=== PATIENT | male | born 1935 | race Caucasian/White ===

== ENCOUNTER 2016-12-28 13:07 | Inpatient (IN) | payer MEDICARE, OTHER ==
[~2016-12-28] VITALS: Ht 170.2 cm; Wt 51.4 kg
[2016-12-28] MEDS ORDERED: CEFEPIME 2GM/50 ML (PMX) 50 ML IVPB STA (13:21)
[2016-12-28] MEDS ORDERED: SOD CHLORIDE 0.9% 1,000 ML IV STA ×3 (13:23→18:51)
[2016-12-28] MEDS ORDERED: VANCOMYCIN 1 GM (PMX) 250 ML IVPB ONE (13:30)
[2016-12-28] MEDS ORDERED: ACETAMINOPHEN 325 MG TAB PO PRN (13:30)
[2016-12-28] MEDS ORDERED: ONDANSETRON 4 MG INJ IV PRN (13:30)
[2016-12-28] MEDS ORDERED: PANT40TA4 PO (13:41)
[2016-12-28] MEDS ORDERED: PRED20TA PO (13:42)
[2016-12-28] MEDS ORDERED: MESA800T2 PO (13:43)
[2016-12-28] MEDS ORDERED: UDMYL PO (13:44)
[2016-12-28] MEDS ORDERED: OLAN5TAB5 PO (13:45)
[2016-12-28] MEDS ORDERED: SERT-165 PO (13:45)
[2016-12-28] MEDS ORDERED: LORA1TAB PO (13:46)
[2016-12-28] MEDS ORDERED: ZOLP10TA5 PO (13:47)
[2016-12-28] MEDS ORDERED: METR500T14 PO (13:49)
[2016-12-28] MEDS ORDERED: MULT-105 PO (13:51)
--- NOTE | 2016-12-28 13:52 | RADRPT ---
PROCEDURE: XR Chest. CLINICAL INDICATION: Hypotension. TECHNIQUE: Two views. Frontal and lateral. COMPARISON: No prior study is available for comparison. FINDINGS: The lungs are clear. The heart size is normal. There is calcification in the aorta consistent with atherosclerosis. There is no pleural effusion. There is no pneumothorax. IMPRESSION: 1. Atherosclerosis. 2. Otherwise normal chest x-ray. RPTAT: QQ .Mohsen Ledesma MD, MD Date Time Electronically viewed and signed by .Mohsen Ledesma MD, on 12/28/2016 13:52 .R/
[2016-12-28] MEDS ORDERED: LACT-9 PO (13:53)
[2016-12-28] MEDS ORDERED: LIDOCAINE 1% (MDV) 20 ML INJ SC ONE (14:00)
[2016-12-28] MEDS ORDERED: LACT-121 PO (14:27)
[2016-12-28] MEDS ORDERED: CALC-84 PO (14:27)
[2016-12-28 14:36] LABS: ADD SCAN DIFF NO
[2016-12-28 14:38] LABS: ABNORMAL IP MESSAGE 1; HEMATOCRIT 36.8 % (42.0-52.0); HEMOGLOBIN 11.7 g/dl (14.0-18.0); MEAN CORPUSCULAR HEMOGLOBIN 31.9 pg (29.0-33.0); MEAN CORPUSCULAR HGB CONC 31.8 g/dl (32.0-37.0); MEAN CORPUSCULAR VOLUME 100.3 fl (82.0-101.0); MEAN PLATELET VOLUME 11.8 fl (7.4-10.4); PLATELET COUNT 82 10^3/UL (140-415); RED BLOOD COUNT 3.67 10^6/ul (4.70-6.10); RED CELL DISTRIBUTION WIDTH 12.9 % (11.5-14.5); WHITE BLOOD COUNT 14.2 10^3/ul (4.8-10.8)
[2016-12-28 14:48] LABS: INR 1.12; PROTIME 14.4 Sec (12.2-14.2); PT RATIO 1.1
[2016-12-28 14:49] LABS: PARTIAL THROMBOPLASTIN TIME 31.7 Sec (25.0-35.0)
[2016-12-28 14:53] LABS: ADD UMIC YES; URINE BILIRUBIN (Dip) 2+ (NEGATIVE); URINE BLOOD (Dip) NEGATIVE (NEGATIVE); URINE COLOR AMBER (YELLOW); URINE KETONES (Dip) NEGATIVE (NEGATIVE); URINE LEUKOCYTE ESTERASE (Dip) NEGATIVE (NEGATIVE); URINE NITRITE (Dip) POSITIVE (NEGATIVE); URINE TOTAL PROTEIN (Dip) 1+ (NEGATIVE); URINE UROBILINOGEN (Dip) 1.0 E.U./dL (0.1-1.0)
[2016-12-28 15:05] LABS: ANISOCYTOSIS 1+; HYPOCHROMASIA 1+; LYMPHOCYTES # 0.4 10^3/ul (0.8-2.9); MONOCYTE # 0.6 10^3/ul (0.3-0.9); NEUTROPHIL # 13.2 10^3/ul (1.6-7.5); PLATELET ESTIMATE PLT APPEAR DECREASED; POIKILOCYTOSIS 1+
[2016-12-28 15:17] LABS: BACTERIA,URINE MODERATE; URINE RBCS 0-2 /HPF (0)
[2016-12-28 15:18] LABS: ICTOTEST NEGATIVE (NEGATIVE)
[2016-12-28 15:37] LABS: ALBUMIN 1.9 g/dl (3.3-4.9); ALBUMIN/GLOBULIN RATIO 0.79; BILIRUBIN,INDIRECT 0.5 mg/dl (0-1.1); BILIRUBIN,TOTAL 0.5 mg/dl (0.2-1.3); CALCIUM 8.2 mg/dl (8.4-10.2); CREATININE 1.65 mg/dl (0.61-1.24); TOTAL PROTEIN 4.3 g/dl (6.1-8.1)
[2016-12-28 15:42] LABS: POTASSIUM 5.4 mmol/L (3.5-5.1)
[2016-12-28 15:48] LABS: TROPONIN-I 0.042 ng/ml (0.00-0.12)
--- NOTE | 2016-12-28 15:51 | RADRPT ---
PROCEDURE: XR Chest. CLINICAL INDICATION: Check PICC line position. TECHNIQUE: Single frontal view. COMPARISON: 12/28/2016. 1342 hours. FINDINGS: There is a left arm PICC line with the tip in the lower superior vena cava. The lungs are clear. The heart size is normal. There is calcification in the aorta consistent with atherosclerosis. There is no pleural effusion. There is no pneumothorax. IMPRESSION: 1. Satisfactory position of left arm PICC line. 2. Atherosclerosis. 3. Otherwise normal chest x-ray. RPTAT: QQ .Mohsen Ledesma MD, MD Date Time Electronically viewed and signed by .Mohsen Ledesma MD, on 12/28/2016 15:50 .R/
--- NOTE | 2016-12-28 16:12 | ERA ---
ER Documentation Chief Complaint Date/Time DATE: 12/28/16 TIME: 16:08 Chief Complaint BROUGHT IN VIA PRIVATE AMBULANCE DUE TO HYPOTENSION HPI Patient is an 81-year-old male who presents with low blood pressure. Please note the history and physical exam is limited secondary to the patient's mental status. The patient was brought in by ambulance. He feels weak. He has not been eating for the past few months per the son. He was on his way admission to get a G-tube placed but his blood pressure was low so the patient was diverted to our emergency department. The patient's primary doctor is Dr. Dick Aguilar. ROS All systems reviewed and are negative except as per history of present illness. Medications Home Meds Reported Medications Lactose-Reduced Food (Boost) 237 Ml Liquid, 237 ML PO DAILY 12/28/16 Calcium Carbonate-Vitamin D3 (Calcium 500 + D Tablet) 1 Each Tablet, 1 TAB PO DAILY, TAB 12/28/16 Lactose-Free Food (ENSURE LIQUID) 237 Ml Liquid, 237 ML PO TID TAKE 1 CAN TID 12/28/16 Multivitamin with Minerals (Multivitamins with Minerals) 1 Each Tablet, 1 EACH PO DAILY, TAB 12/28/16 Metronidazole* (Metronidazole*) 500 Mg Tablet, 500 MG PO TID, TAB 12/28/16 Zolpidem Tartrate* (Zolpidem Tartrate*) 10 Mg Tablet, 10 MG PO QHS Y for INSOMNIA, #30 TAB 12/28/16 Lorazepam* (Lorazepam*) 1 Mg Tablet, 1 MG PO Q12H Y for ANXIETY, #60 TAB 12/28/16 Olanzapine* (Zyprexa*) 5 Mg Tablet, 5 MG PO QHS, #30 TAB 12/28/16 Sertraline Hcl* (Sertraline Hcl*) 100 Mg Tablet, 100 MG PO DAILY, #30 TAB 12/28/16 Magaldrate/Simethicone* (Mag-Al Plus Suspension*) 30 Ml Oral.susp, 30 ML PO Q4H Y for GASTROINTESTINAL UPSET, ML 12/28/16 Mesalamine* (Asacol HD) 800 Mg Tablet.dr, 800 MG PO Q8H, TAB 12/28/16 Prednisone* (Prednisone*) 20 Mg Tab, 20 MG PO BID, TAB 12/28/16 Pantoprazole* (Pantoprazole*) 40 Mg Tablet.dr, 40 MG PO AC BREAKFAST DINNER, TAB 12/28/16 Allergies Allergies: Coded Allergies: No Known Allergy (Unverified , 12/28/16) PMhx/Soc History of Surgery: No (unk) Anesthesia Reaction: No Hx Neurological Disorder: No Hx Respiratory Disorders: No Hx Cardiac Disorders: Yes (Hypertension/hyperlipidemia) Hx Psychiatric Problems: Yes Hx Miscellaneous Medical Probl: Yes (GI bleed, GI fissure) Hx Alcohol Use: No Hx Substance Use: No Hx Tobacco Use: No (quit 40 years ago) Smoking Status: Former smoker FmHx Unable to obtain Physical Exam Vitals Vital Signs Date Time Temp Pulse Resp B/P Pulse Ox O2 Delivery O2 Flow Rate FiO2 12/28/16 15:00 88 17 71/53 100 Nasal Cannula 4.0 12/28/16 14:30 83 12 85/56 99 Nasal Cannula 4.0 12/28/16 14:00 92 18 83/56 99 Nasal Cannula 4.0 12/28/16 13:45 80 12 80/62 100 Nasal Cannula 4.0 12/28/16 13:33 97.9 94 18 72/47 96 12/28/16 13:30 Nasal Cannula 4 12/28/16 13:30 85 12 77/50 100 Nasal Cannula 4.0 Physical Exam Const: Cachectic Head: Atraumatic Eyes: Normal Conjunctiva ENT: Normal External Ears, Nose and Mouth. Extremely dry mucous membranes Neck: Full range of motion..~ No meningismus. Resp: Clear to auscultation bilaterally Cardio: Regular rate and rhythm, no murmurs Abd: Soft, non tender, non distended. Normal bowel sounds Skin: No petechiae or rashes Back: No midline or flank tenderness Ext: No cyanosis, or edema Neur: Awake but confused Result Diagram: 12/28/16 1330 12/28/16 1350 Results 24 hrs Laboratory Tests Test 12/28/16 13:30 12/28/16 13:50 12/28/16 14:39 White Blood Count 14.210^3/ul Red Blood Count 3.6710^6/ul Hemoglobin 11.7g/dl Hematocrit 36.8% Mean Corpuscular Volume 100.3fl Mean Corpuscular Hemoglobin 31.9pg Mean Corpuscular Hemoglobin Concent 31.8g/dl Red Cell Distribution Width 12.9% Platelet Count 8210^3/UL Mean Platelet Volume 11.8fl Neutrophils % 93.0% Lymphocytes % 3.0% Monocytes % 4.0% Eosinophils % % Neutrophils # 13.210^3/ul Lymphocytes # 0.410^3/ul Monocytes # 0.610^3/ul Eosinophils # 10^3/ul Platelet Estimate PLT APPEAR DECREASED Hypochromasia 1+ Poikilocytosis 1+ Anisocytosis 1+ Prothrombin Time 14.4Sec Prothrombin Time Ratio 1.1 INR International Normalized Ratio 1.12 Activated Partial Thromboplast Time 31.7Sec Lactic Acid Level 5.4mmol/L Sodium Level 126mmol/L Potassium Level 5.4mmol/L Chloride Level 104mmol/L Carbon Dioxide Level 16mmol/L Anion Gap 11 Blood Urea Nitrogen 49mg/dl Creatinine 1.65mg/dl Glucose Level 151mg/dl Calcium Level 8.2mg/dl Total Bilirubin 0.5mg/dl Direct Bilirubin 0.00mg/dl Indirect Bilirubin 0.5mg/dl Aspartate Amino Transf (AST/SGOT) 17IU/L Alanine Aminotransferase (ALT/SGPT) 28IU/L Alkaline Phosphatase 73IU/L Troponin I 0.042ng/ml Total Protein 4.3g/dl Albumin 1.9g/dl Globulin 2.40g/dl Albumin/Globulin Ratio 0.79 Urine Color PAT Urine Clarity CLEAR Urine pH 5.0 Urine Specific [place] 1.025 Urine Ketones NEGATIVE Urine Nitrite POSITIVE Urine Bilirubin 2+ Urine Ictotest NEGATIVE Urine Urobilinogen 1.0 E.U./dL Urine Leukocyte Esterase NEGATIVE Urine Microscopic RBC 0-2/HPF Urine Microscopic WBC 0-2/HPF Urine Epithelial Cells FEW Urine Amorphous Urates FEW Urine Bacteria MODERATE Urine Hyaline Casts FEW Urine Hemoglobin NEGATIVE Urine Glucose 0.1%% Urine Total Protein 1+ Current Medications Medications (Trade) Dose Ordered Sig/Carl Route PRN Reason Start Time Stop Time Status Last Admin Dose Admin Cefepime HCl 50 ml @ 100 mls/hr ONCE STAT IVPB 12/28/16 13:21 12/28/16 13:50 DC 12/28/16 15:47 Vancomycin HCl 250 ml @ 125 mls/hr ONCE ONCE IVPB 12/28/16 13:30 12/28/16 15:29 DC Sodium Chloride 1,000 ml @ 1,000 mls/hr Q1H STAT IV 12/28/16 13:23 12/28/16 14:22 DC 12/28/16 14:03 Sodium Chloride (NS) 1,000 ml @ 1,000 mls/hr Q1H STAT IV 12/28/16 13:23 12/28/16 14:22 DC 12/28/16 14:03 Ondansetron HCl (Zofran Inj) 4 mg BRIDGE ORDER PRN IV NAUSEA AND/OR VOMITING 12/28/16 13:30 12/29/16 13:29 Acetaminophen (Tylenol Tab) 650 mg ER BRIDGE PRN PO MILD PAIN/FEVER 12/28/16 13:30 12/29/16 13:29 Lidocaine (Xylocaine 1% (Mdv) 20 ml) 20 ml ONCE ONCE SC 12/28/16 14:00 12/28/16 14:01 DC Procedures/MDM EKG read by me: Rate/Rhythm: Regular rate and rhythm at a rate of 94 Intervals: Normal Impression: No evidence of ischemia or arrhythmia Chest x-ray shows no pneumonia or pneumothorax per radiology. Admit MDM: Patient's infectious symptoms have not stabilized and the patient is at risk of rapid decompensation. The patient will be admitted for careful hydration, antibiotic therapy, and infectious source control. Severe Sepsis criteria: Infectious source: Unclear at this time End organ damage indicated by: Lactate greater than 2 Sepsis Management: Time of recognition of sepsis: 13:30 Within 3 hours of recognition: Blood cultures x 2 before broad-spectrum antibiotics: Yes 30 ml/kg NS bolus Completed Initial lactate 5.4 Repeat lactate pending Time of recognition of septic shock: No septic shock Septic Shock Assessment: Any lactic acid > 4.0 yes Persistent hypotension (SBP < 90 or 40 mmHg drop, MAP < 65) despite 30 mL/kg IV fluid bolus No Volume Re-assessment for Septic Shock (post 30 ml/kg bolus): Temp 97.9, BP 71/53, HR 88, RR 17, Pox 100% on 4 L nasal cannula Heart Regular rate & rhythm Lungs No crackles Skin Warm & dry Cap Refill Less than 2 seconds Peripheral pulses Radially present Persistent Hypotension Treatment: Comfort care No Central line PICC line placed Vasopressor started Not required I considered further perfusion assessment with CVP measurement, SCVO2, bedside ultrasound volume assessment, passive leg raise, trial of further fluid bolus. And proceeded with 30 ml/kg fluid bolus of NSS, broad spectrum antibiotics, and admission. Accepting Care Team Current data and ongoing care discussed. Admitting Physician: Dr. Jonathan Kirkpatrick the patient's primary doctor Check Clerk(s): None Outstanding Data: Culture results and repeat lactic acid Critical Care: Critical care time 35 minutes excluding all billable procedures Emergent fluid management while maintaining close respiratory support. Provision of immediate and broad-spectrum antibiotic therapy. Simultaneous assessment for possible sources in order to direct targeted therapy. Consideration for invasive and chemical support to prevent cardiopulmonary collapse. Departure Diagnosis: Primary Impression: Failure to thrive Qualified Code: R62.7 - Failure to thrive in adult Additional Impressions: Hypotension Qualified Code: I95.9 - Hypotension, unspecified hypotension type Dehydration Anemia Qualified Code: D64.9 - Anemia, unspecified type Septic shock Hyponatremia Condition: Serious SAMANTHA ADEN MD Dec 28, 2016 16:12
[2016-12-28] MEDS ORDERED: TPN 1,000 ML IV STA (16:31)
--- NOTE | 2016-12-28 16:45 | RADRPT ---
PROCEDURE: US guidance for PICC line CLINICAL INDICATION: PICC line placement TECHNIQUE: Multiple real-time images were acquired of the patient's arm utilizing a high resolutio n transducer. This was performed by the PICC line nurse for venous access. COMPARISON: None FINDINGS: Ultrasound guidance for PICC line placement. IMPRESSION: Ultrasound guidance for PICC line placement. RPTAT: AA .Chu Raines MD, MD Date Time Electronically viewed and signed by .Chu Raines MD, on 12/28/2016 16:44 .S/
[2016-12-28] MEDS ORDERED: METHYLPRED. NA SUCC 1,000 MG in DEXTROSE 5% 50 ML IVPB ONE (17:00)
[2016-12-28] MEDS: [UNRECOGNIZED DRUG - REMARK] XX SCH (17:30)
--- NOTE | 2016-12-28 17:46 | CONS ---
DATE OF ADMISSION: 12/28/2016 DATE OF CONSULTATION: 12/28/2016 TYPE OF CONSULTATION: Gastroenterology. Dear Dr. Castillo, Thank you for asking me to see Mr. Ohara in GI consultation. HISTORY OF PRESENT ILLNESS: The patient, as you know, is an 81-year-old [place] gentleman who [facility] a [facility] of [facility], weakness, tiredness and dehydrati on. The patient is unable to give me any history. He is alert. Upon talking with the patient's so n, he says he has been vomiting, has not been able to keep any food down in the past several days an d every time he was given food, he would eat and throw up and any medications given to him, he would take it and throw it up. No history of vomiting blood. He does have abdominal pain, history of lyle ving bloody diarrhea. He has a history of longstanding chronic ulcerative colitis. He was on predn isone and he was on Asacol, the details of which are not available at this stage; however, what we k now at this time, the patient was supposed to be getting following medications in the jail which include: 1. Lorazepam. 2. Zyprexa. 3. Zolpidem. 4. Calcium. 5. Ensure. 6. Boost. 7. Magaldrate, which is simethicone. 8. Mesalamine. 9. Pantoprazole. 10. Prednisone. PAST MEDICAL HISTORY: Essentially several weeks ago he had a colonoscopy is done in [facility] which showed evidence of severe ulcerative colitis. Biopsy did not show any evidence of dysplasia. Please refer to the H and P for more information. PHYSICAL EXAMINATION: GENERAL: The patient is an 81-year-old [place] gentleman who at this time is alert. His skin and oral mucosa are extremely dry. VITAL SIGNS: Temperature 97.9, pulse is 88, blood pressure is running in the low 80s systolic, late st is 110/70. CARDIOVASCULAR: Normal heart sounds. RESPIRATORY: Normal breath sounds. ABDOMEN: Showed unremarkable findings. RECTAL: Exam is deferred. LABORATORY WORKUP: Hemoglobin 11.7, WBC is 14,200, platelet count 82,000. INR is 1.12, potassium 5 .4, sodium 126, BUN is 49, creatinine 1.65, bilirubin 0.5, AST 17, ALT 28, albumin 1.9. The chest x -ray shows evidence of arteriosclerosis. CLINICAL IMPRESSION: The patient presenting with history of abdominal pain and vomiting. Rule out bowel obstruction, rule out pancreatitis, rule out peptic ulcer disease. He does have history of ul cerative colitis. Clinically, he does not have any toxic megacolon. He has mentioned he has very severe ulcerative colitis. He is a hypotensive due to dehydration. He has prerenal azotemia. PLAN: At this time, recommend IV Solu-Medrol 1 gram to be given ____ the emergency room doctor. TP N needs to be given to improve his albumin. He needs to continue Solu-Medrol every 8 hours at 40 mg . The patient is currently being given antibiotics, which can be continued. Recommend CAT scan of the abdomen. ____ Asacol HD 1 tablet ____b.i.d. Once again, doctor, thank you for this consultation. Dictated By: ADA CASTELLON/NTS Conf#: [id number] DID#: [id number] CC: JULIET CASTILLO MD; ADA SANTIAGO MD;*EndCC*
[2016-12-28] MEDS: TPN 1,000 ML IV SCH ×2 (18:00→21:07)
[2016-12-28] MEDS ORDERED: NORepinephrine 8MG/250 ML (PMX 250 ML IV STA (18:27)
[2016-12-28] MEDS ORDERED: SOD CHLORIDE 0.9% 100 ML ONE (19:03)
[2016-12-28 19:12] LABS: AMYLASE 64 U/L (11-123)
[2016-12-28] MEDS: ACCU-CHEK XX SCH ×2 (19:50→23:57)
[2016-12-28] MEDS: FAT EMULSION 20% 250 ML IV SCH (21:07)
[2016-12-28] MEDS: MESALAMINE 4 GM/60 ML ENEMA PR SCH (21:07)
[2016-12-28] MEDS: ASACOL HD PO SCH (21:29)
[2016-12-29] VITALS (65 sets, daily range): BP systolic 86–131; BP diastolic 45–89; PULSE 67–89; RESP 11–29; TEMP 97.2
[2016-12-29] MEDS: [UNRECOGNIZED DRUG - REMARK] XX SCH ×3 (00:31→18:00)
[2016-12-29] MEDS: ASACOL HD PO SCH ×3 (06:00→22:00)
[2016-12-29] MEDS: TPN 1,000 ML IV SCH ×2 (08:16→18:54)
[2016-12-29] MEDS ORDERED: NORepinephrine 8MG/250 ML (PMX 250 ML IV SCH (08:30)
[2016-12-29] MEDS: ACCU-CHEK XX SCH ×3 (08:53→21:00)
--- NOTE | 2016-12-29 10:40 | CONS ---
Date/Time of Note Date/Time of Note DATE: 12/29/16 TIME: 10:36 Assessment/Plan Assessment/Plan Chief Complaint/Hosp Course - ACUTE KIDNEY INJURY - CHRONIC KIDNEY DISEASE - SEPTIC SHOCK - RESPIRATORY FAILURE - HYPERKALEMIA - ANEMIA PLAN: HEMODYNAMIC SUPPORT AT THIS POINT RECHECK HIS POTASSIUM LATER TODAY MONITOR H/H IV PRESSORS IV FLUID AVOIDING NEPHROTOXIC AGENTS THANK YOU Johan NASH Problems: Consultation Date/Type/Reason Admit Date/Time Dec 28, 2016 at 13:26 Date of Consultation: Dec 29, 2016 Type of Consultation: NEPHROLOGY Reason for Consultation - ACUTE KIDNEY INJURY - CHRONIC KIDNEY DISEASE Hx of Present Illness Patient is an 81-year-old male who presents with low blood pressure. Please note the history and physical exam is limited secondary to the patient's mental status. The patient was brought in by ambulance. He feels weak. He has not been eating for the past few months per the son. He was on his way admission to get a G-tube placed but his blood pressure was low so the patient was diverted to our emergency department. Subjective hx not possible: pt non-verbal Past Medical History Medical History: coronary artery disease, hypertension, renal disease Family History Significant Family History: no pertinent family hx Social History Alcohol Use: none Smoking Status: Former smoker Drug Use: none Exam/Review of Systems Vital Signs Vitals Vital Signs Date Time Temp Pulse Resp B/P Pulse Ox O2 Delivery O2 Flow Rate FiO2 12/29/16 08:15 79 22 118/89 100 Nasal Cannula 12/29/16 07:30 98.2 2.0 12/28/16 22:00 30 Intake and Output 12/28/16 12/28/16 12/29/16 15:00 23:00 07:00 Intake Total 2000 ml Output Total 120 ml 200 ml Balance 1880 ml -200 ml Exam Constitutional: other (In ICU, Intubated) Neck: jvd Respiratory: crackles/rales Cardiovascular: regular rate and rhythm, systolic murmur Gastrointestinal: soft Results Result Diagram: 12/28/16 1330 12/28/16 1350 Results 24 hrs Laboratory Tests Test 12/28/16 13:30 12/28/16 13:50 12/28/16 14:39 12/28/16 16:25 White Blood Count 14.2 H Red Blood Count 3.67 L Hemoglobin 11.7 L Hematocrit 36.8 L Mean Corpuscular Volume 100.3 Mean Corpuscular Hemoglobin 31.9 Mean Corpuscular Hemoglobin Concent 31.8 L Red Cell Distribution Width 12.9 Platelet Count 82 L Mean Platelet Volume 11.8 H Neutrophils % 93.0 H Lymphocytes % 3.0 L Monocytes % 4.0 Eosinophils % Neutrophils # 13.2 H Lymphocytes # 0.4 L Monocytes # 0.6 Eosinophils # Platelet Estimate PLT APPEAR DECREASED Hypochromasia 1+ Poikilocytosis 1+ Anisocytosis 1+ Prothrombin Time 14.4 H Prothrombin Time Ratio 1.1 INR International Normalized Ratio 1.12 Activated Partial Thromboplast Time 31.7 Lactic Acid Level 5.4 *H 2.1 Sodium Level 126 L Potassium Level 5.4 H Chloride Level 104 Carbon Dioxide Level 16 L Anion Gap 11 Blood Urea Nitrogen 49 H Creatinine 1.65 H Glucose Level 151 Calcium Level 8.2 L Total Bilirubin 0.5 Direct Bilirubin 0.00 Indirect Bilirubin 0.5 Aspartate Amino Transf (AST/SGOT) 17 Alanine Aminotransferase (ALT/SGPT) 28 Alkaline Phosphatase 73 Troponin I 0.042 Total Protein 4.3 L Albumin 1.9 L Globulin 2.40 Albumin/Globulin Ratio 0.79 Urine Color PAT Urine Clarity CLEAR Urine pH 5.0 Urine Specific [place] 1.025 Urine Ketones NEGATIVE Urine Nitrite POSITIVE H Urine Bilirubin 2+ H Urine Ictotest NEGATIVE Urine Urobilinogen 1.0 E.U./dL Urine Leukocyte Esterase NEGATIVE Urine Microscopic RBC 0-2 Urine Microscopic WBC 0-2 Urine Epithelial Cells FEW Urine Amorphous Urates FEW Urine Bacteria MODERATE Urine Hyaline Casts FEW Urine Hemoglobin NEGATIVE Urine Glucose 0.1% H Urine Total Protein 1+ H Test 12/28/16 16:37 12/28/16 18:44 12/28/16 19:48 12/28/16 23:57 Stool Occult Blood POSITIVE Lactic Acid Level 1.4 Amylase Level 64 Lipase 28 Bedside Glucose 121 227 H Test 12/29/16 08:49 Bedside Glucose 166 Medications Medications Current Medications Mesalamine (Rowasa) 4 gm HS CA Last administered on 12/28/16t 21:07; Admin Dose 4 GM; Start 12/28/16 at 21:00 Patient Own Medication 1 ea Q8 PO ; Start 12/28/16 at 22:00 Miscellaneous Information MEDICATION REQUIRES CLARIFICATION: Q8H XX ; Start 12/28/16 at 17:30 Total Parenteral Nutrition 1,000 ml @ 100 mls/hr Q10H IV Last administered on 12/29/16 08:16; Admin Dose 100 MLS/HR; Start 12/28/16 at 18:00 Fat Emulsion Intravenous (Liposyn Ii 20%) 250 ml @ 10 mls/hr Q24H IV Last administered on 12/28/16 21:07; Admin Dose 10 MLS/HR; Start 12/28/16 at 20:00 Phytonadione (Vitamin K) 10 mg Q7D IM ; Start 01/04/17 at 18:30 Diagnostic Test (Pha) (Accu-Chek) 1 ea Q6H XX Last administered on 12/29/16 08: 53; Admin Dose 1 EA; Start 12/28/16 at 18:30; Stop 12/29/16 at 12:31 Diagnostic Test (Pha) (Accu-Chek) 1 ea Q12 XX ; Start 12/29/16 at 09:00 IV Flush 10 ml 10 ml PRN PRN IV IV PROTOCOL; Start 12/28/16 at 19:00 Norepinephrine 250 ml @ 1.875 mls/ hr TITRATE IV Last administered on 08:52; Admin Dose 9.375 MLS/HR; Start 12/29/16 at 08:30; Stop 12/29/16 at 15: 00 Norepinephrine 16 mg/Dextrose 500 ml @ 1.87 mls/hr TITRATE IV ; Start 12/29/16 at 10:00 Infliximab/Sodium Chloride (Remicade/NS) 272 ml @ 136 mls/hr ONCE ONCE IV ; Start 12/29/16 at 15:00; Stop 12/29/16 at 16:59 GONZALEZ NATION MD Dec 29, 2016 10:40
[2016-12-29 12:00] LABS: ADD SCAN DIFF NO
[2016-12-29 12:08] LABS: ABNORMAL IP MESSAGE 1; HEMATOCRIT 27.9 % (42.0-52.0); MEAN CORPUSCULAR HEMOGLOBIN 32.6 pg (29.0-33.0); MEAN CORPUSCULAR HGB CONC 32.3 g/dl (32.0-37.0); MEAN CORPUSCULAR VOLUME 101.1 fl (82.0-101.0); MEAN PLATELET VOLUME 11.6 fl (7.4-10.4); PLATELET COUNT 71 10^3/UL (140-415); RED BLOOD COUNT 2.76 10^6/ul (4.70-6.10)
[2016-12-29 12:14] LABS: POTASSIUM 4.5 mmol/L (3.5-5.1)
[2016-12-29 12:16] LABS: CREATININE 0.98 mg/dl (0.61-1.24)
[2016-12-29 12:17] LABS: CALCIUM 7.4 mg/dl (8.4-10.2)
[2016-12-29 13:56] LABS: LYMPHOCYTES # 0.4 10^3/ul (0.8-2.9); NEUTROPHIL # 8.8 10^3/ul (1.6-7.5)
[2016-12-29 13:57] LABS: ANISOCYTOSIS 1+; HYPOCHROMASIA 1+
--- NOTE | 2016-12-29 14:19 | HP ---
DATE OF ADMISSION: 12/28/2016 ADMITTING DIAGNOSES: 1. Severe hypotension. 2. Chronic ulcerative colitis with acute status, diarrhea, rectal bleeding. 3. Septic shock. 4. Major depression. 5. Anemia. 6. Dysphagia. 7. Malnutrition, weight loss. 8. Severe inflammatory bowel disease. 9. Benign prostatic hypertrophy. 10. Recurrent hypotension. HISTORY OF PRESENT ILLNESS: The patient is an 81-year-old male admitted to the hospital from [facility] after he was sent for his weakness, lethargy, not eating or drinking, dehydrated and worsen ing for the last 3 days. Patient evaluated in the emergency room, IV fluids started and bolus was g iven to him. admitted to ICU for his hypotension on vasopressor and further management. His lactic acid was elevated compatible with sepsis and lactic acid elevation. The patient is weak, lethargic and noncompliant. HABITS: Not a smoker, drinker or drug abuser. ALLERGIES: DENIES ALLERGIES. PAST MEDICAL HISTORY: The patient has history of Crohn's disease, ulcerative colitis, rectal bleedi ng, indigestion, sepsis, incontinent of urine, peptic ulcer disease, gastroesophageal reflux disorde r, severe anemia with blood transfusion, weight loss, anorexia, sleep disorder, difficulty walking, dyslipidemia, recurrent GI bleeding, benign prostatic hypertrophy, acute agitation and psychosis. MEDICATIONS: Currently, he is on: 1. Remeron. 2. Olanzapine. 3. Vitamin D. 4. Protonix. 5. Mesalamine. 6. Prednisone. 7. He is on Flagyl ____ not responding to medicine 8. Ferrous sulfate. 9. Nutritional supplement. 10. Flomax. SOCIAL HISTORY: Patient used to be a smoker. No drinker, drug abuser, quit more than 40 years. FAMILY HISTORY: Unremarkable. REVIEW OF SYSTEMS: GASTROINTESTINAL: Peptic ulcer disease, anorexia, epigastric pain, weight loss, Crohn's disease, ul cerative colitis, GI bleeding followed by Dr. Watts on ____and prednisone, recurrent abdominal pain , anemia, dehydration and blood transfusion. Follow up GI workup ____. CARDIOVASCULAR: No hypertension, but hypotension. No heart disease or chest pain, no peripheral va scular disease. GENITOURINARY: No dysuria, hematuria or incontinence of urine, but occasional urgency and incontine ncy occasionally. CARDIOVASCULAR: No hypertension, no chest pain. No peripheral vascular disease. RESPIRATORY: No shortness of breath or cough. No pulmonary tuberculosis, hemoptysis. HEMATOLOGY: Chronic anemia secondary to gastrointestinal bleeding, chronic illnesses, anorexia and poor appetite. MUSCULOSKELETAL: Severe myopathy and difficulty walking. Bedridden for several months. HEMATOLOGY: Chronic anemia of multiorgan disease. NEUROLOGIC: Peripheral neuropathy with weakness. No pain, but confusion and agitation. PHYSICAL EXAMINATION: GENERAL: The patient is awake, calm, confused, looks stated age. VITAL SIGNS: On admission, blood pressure was 80/60 and is on IV fluids on dopamine infusion. Zarina re weakness and pale. HEENT: Normocephalic, atraumatic. Pupils equal, react to light and accommodation. Sclerae anicter ic. Extraocular movements within normal limits. Throat clear. No sign of acute infection seen. D ry oral mucosa. Facial skin and scalp within normal limits. NECK: Supple, trachea central, no thyroid enlargement, no cervical lymphadenopathy. Carotid pulse normal. No jugular venous distention. CHEST: Normal contour with normal inspiration and expiration. LUNGS: Clear to auscultation and percussion. HEART: Regular sinus rhythm. No rub or murmur. PMI localized in midclavicular line, fourth interc ostal space. ABDOMEN: Umbilicus central. No organomegaly. No tenderness or rebound, no organomegaly. Tenderne ss, generalized, not localized. A scaphoid abdomen. EXTERNAL GENITALIA: Within normal limits. RECTAL: The patient refused due to rectal bleeding. EXTREMITIES: Upper and lower extremities normally shaped at this moment, no muscle atrophy with sev ere weakness. Stiffness of the joints and difficulty walking or sitting. NEUROLOGICAL: Cranial nerves II through XII and peripheral nerves, sensory and motor grossly within normal limits. Gait unable. The patient had numbness in the extremities and dense weakness. IMPRESSION: 1. Acute orthostatic hypotension. 2. Severe lactic acid elevation. 3. Sepsis. 4. Gastrointestinal hemorrhage. 5. Anemia due to acute blood loss. 6. Malnutrition. 7. Acute renal failure. PLAN: The patient admitted to the hospital with Dr. Watts for PEG placement. Family agreed for it . Will ask ____ for nephrology consult for his acute renal failure. Will ask Dr. Corbett in inf ectious disease consult. Discussed his condition with the family and they understand the plan. We will follow up. PROGNOSIS: Guarded. CODE STATUS: FULL CODE. Dictated By: RAMBO POWELL/MEAGAN Conf#: [id number] DID#: [id number]
[2016-12-29] MEDS ORDERED: SOD CHLORIDE 0.9% IV ONE (15:00)
[2016-12-29] MEDS ORDERED: INFLIXIMAB IV ONE (15:00)
--- NOTE | 2016-12-29 15:02 | RADRPT ---
PROCEDURE: CT scan of the abdomen and pelvis without IV contrast. CLINICAL INDICATION: 81-year-old male with history of all ulcerative colitis and vomiting. TECHNIQUE: Thin section axial, coronal and sagittal images were performed through the abdomen and pelvis without contrast. Radiation Dose: CTDI: 6.7 and DLP: 380 One or more of the following dose reduction techniques were used: - Automated exposure control. - Adjustment of the mA and/or kV according to patient size. Use of iterative reconstruction technique. COMPARISON: Chest x-ray 10/27/2016 06:18 a.m. FINDINGS: Soft tissues: There is anasarca of the soft tissues.. Lungs and pleural spaces: There are bilateral pleural effusions. There is compressive atelectasis i n the right and left lower lobes associated with the pleural effusions. Remaining lung montesinos are m ildly hyperinflated with no pulmonary nodule or acute infiltrate identified. Heart: Heart is normal in size. There are vascular calcifications of the root of the aorta and in t he left coronary artery. There is a small pericardial effusion. The liver, common bile duct and gallbladder: The liver is mildly enlarged measuring 15.9 cm AP. No hepatic mass or intrahepatic biliary ductal dilatation is identified. The gallbladder and gallbladd er wall are normal. Gastrointestinal: There is mucosal thickening of the cecum, ascending colon and portions of the machado sverse colon. There is mucosal thickening of the descending and sigmoid colon. There are diverticu la in the sigmoid colon. There is mucosal thickening of the rectal ampulla. There is a small left i nguinal hernia containing only fat, no intra-abdominal. Pancreas: The pancreas is normal in size. No pancreatic mass is identified. The extrahepatic commo n bile duct is normal. Kidneys, bladder and adrenal glands : The adrenal glands and both kidneys are normal. No obstructin g ureterolith or nephrolith is identified. Air and fluid are noted in the urinary bladder which con tains a Chanel catheter. There is mild trabeculation of the urinary bladder wall which could be the result of chronic obstruction or infection. Spleen: Normal. Lymph nodes: Normal. Reproductive system and pelvis : The prostate gland is enlarged measuring 4.9 x 4.3 by 5.1 cm. Bony elements: There are degenerative osteophytes in the thoracic and lumbosacral spine. There are mild degenerative changes in both hips with a small benign bone island in the proximal head of the r ight femur. No acute bony fracture is noted. Vasculature: Atherosclerotic vascular calcifications are present in the abdominal aorta, lower thora cic aorta, common iliac arteries near the origin of the renal arteries. Atherosclerotic calcificati ons are present in the distal right common femoral artery. IMPRESSION: 1. Diffuse mucosal thickening involving the colon including the rectum consistent with the stated h istory of Crohn disease. Diverticulosis of the sigmoid colon. 2. Anasarca. 3. Enlarged prostate gland with trabeculation of the urinary bladder wall suspicious for chronic ou tlet obstruction. An associated urinary tract infection is not excluded. 3. Bilateral pleural effusions with compressive atelectasis in the bases of the lungs. 4. A Chanel catheter is well-positioned the urinary bladder. 5. Osteoarthritis of the thoracic and lumbosacral spine. 6. Atherosclerotic vascular disease. 7. Small pericardial effusion. 8. Small left inguinal hernia containing fat but no entrapped bowel loop. 9. Mild hepatomegaly. RPTAT:AAJJ Physician Shannan Date Time Electronically viewed and signed by Physician Shannan on 12/29/2016 15:02 JM/
[2016-12-29] MEDS ORDERED: FENTAnyl 50 MCG/ML VIAL ONE (17:58)
[2016-12-29] MEDS ORDERED: PHENYLephrine (100 MCG/ML) 5ML SYG ONE (17:58)
[2016-12-29] MEDS ORDERED: EPHEDrine SULFATE 50 MG/5 ML SYG ONE (17:58)
[2016-12-29] MEDS ORDERED: MIDAZOLAM 1 MG/ML 2 ML INJ ONE (17:58)
[2016-12-29] MEDS ORDERED: PROPOFOL 20 ML ONE (17:58)
[2016-12-29] MEDS ORDERED: CEFAZOLIN 1 GM/50 ML (PMX) 50 ML IVPB ONE (18:01)
[2016-12-29] MEDS: FAT EMULSION 20% 250 ML IV SCH (21:33)
[2016-12-29] MEDS: FLUCONAZOLE 100 MG/NS (PMX) 50 ML IVPB SCH (21:34)
[2016-12-29 21:55] LABS: TIME 2120
[2016-12-30] VITALS (46 sets, daily range): BP systolic 79–120; BP diastolic 43–74; PULSE 79–112; RESP 15–27
[2016-12-30] MEDS: [UNRECOGNIZED DRUG - REMARK] XX SCH ×3 (01:30→17:37)
[2016-12-30] MEDS: MESALAMINE 4 GM/60 ML ENEMA PR SCH ×2 (03:27→21:00)
[2016-12-30] MEDS: TPN 1,000 ML IV SCH (04:31)
[2016-12-30 05:31] LABS: POTASSIUM 3.8 mmol/L (3.5-5.1)
[2016-12-30 05:33] LABS: CREATININE 0.63 mg/dl (0.61-1.24)
[2016-12-30 05:34] LABS: CALCIUM 7.4 mg/dl (8.4-10.2)
[2016-12-30] MEDS: ASACOL HD PO SCH ×3 (05:36→22:00)
--- NOTE | 2016-12-30 06:22 | GILP ---
DATE OF PROCEDURE: PROCEDURE: Esophagogastroduodenoscopy. PREOPERATIVE DIAGNOSIS: Patient presenting with a history of difficulty in swallowing, loss of a gr eat deal of weight, he is malnourished and hypoalbuminemic. Procedure at this time is performed to create access for long-term nutritional support. POSTOPERATIVE DIAGNOSES: 1. Graciela of the esophagus. 2. Percutaneous endoscopic gastrostomy tube placed. DESCRIPTION OF PROCEDURE: After informed written consent was obtained, the patient was asked to lie in the supine position. Intravenous anesthesia was given by the anesthesiologist, Dr. Art. W hen the patient became somnolent, the Olympus video upper endoscope was introduced into the orophary nx, then into the esophagus. The esophagus showed evidence of what looks like Graciela of the esopha jordon. Biopsies were done to rule out Graciela. The scope at this time was advanced into the stomach. The stomach appeared normal. Minimal erythema was noted in the antrum. Duodenum appeared normal. There is evidence of a small duodenal ulcer noted in the duodenal bulb. Endoscope at this time wa s withdrawn to the level of the gastric cavity. The anterior abdominal wall was prepared with Betad ine and alcohol, 2 mL of 2% Xylocaine was infiltrated at the endoscopic illuminating site and a 5-mm incision was made by using the scalpel. Through the incision the trocar was inserted into the stom ach. Through the trocar a guidewire was inserted into the stomach and the guidewire was grabbed wit h a polypectomy snare, and this was brought out through the mouth, along with the endoscope. To thi s end of the guidewire, a #20 Microvasive G-tube was tied in a loop fashion and then it was brought out through the abdominal wall incision. A retention bumper was placed over the G-tube close to the skin. The tapered end of the gastrostomy tube was cut, the adapter was placed, and the procedure w as terminated. PLAN: Recommend starting G-tube feedings in the a.m. Dictated By: ADA CASTELLON/MEAGAN Conf#: [id number] DID#: [id number] CC: RAMBO CHAIDEZ MD;*EndCC*
[2016-12-30] MEDS: ACCU-CHEK XX SCH (08:39)
--- NOTE | 2016-12-30 13:37 | CONS ---
DATE OF ADMISSION: 12/28/2016 DATE OF CONSULTATION: 12/30/2016 CHIEF COMPLAINT: At this time, patient is not verbalizing significantly, not in abdominal pain. According to the nursing staff, he had 1 bloody bowel movement yesterday. PHYSICAL EXAMINATION: GENERAL: On examination, the patient appears alert. VITAL SIGNS: Blood pressure is around high 90s, still on Levophed. Pulse is 86. CARDIOVASCULAR: Normal heart sounds. RESPIRATORY: Normal breath sounds. ABDOMEN: Shows soft abdomen, status post PEG placement. LABORATORY WORKUP: As of day before yesterday, potassium 5.4, sodium 126. Obviously this needs to be repeated. Lactic acid level is down to 2.1. The hemoglobin is 9.0 as of yesterday. WBC count 1 1,000. As of today, potassium is 3.8, sodium 131, BUN 36, creatinine 0.63. The CAT scan of the abdomen done yesterday showed evidence of diffuse colitis, enlarged prostate, b ilateral pleural effusions Chanel catheter, osteoarthritis. Please see the report. CLINICAL IMPRESSION: 1. Status post PEG placement. 2. Evidence of Graciela of the esophagus for which he is on Diflucan, which can be continued. 3. Chronic ulcerative colitis. The patient is still receiving steroids ____TPN. The patient is sc heduled to have Remicade. 4. Continue soap water enemas. PLAN: As mentioned above. Continue Remicade ____ when it started, continue soap water enemas. Co ntinue steroids. Continue Diflucan. Dictated By: ADA CASTELLON/NTS Conf#: [id number] DID#: [id number] CC: ADA SANTIAGO MD;*EndCC*
[2016-12-30] MEDS: FLUCONAZOLE 100 MG/NS (PMX) 50 ML IVPB SCH (20:00)
[2016-12-31] VITALS (77 sets, daily range): BP systolic 67–106; BP diastolic 37–68; PULSE 78–115; RESP 17–31
[2016-12-31] MEDS: [UNRECOGNIZED DRUG - REMARK] XX SCH ×3 (01:30→17:30)
[2016-12-31] MEDS: ASACOL HD PO SCH ×3 (04:34→22:00)
--- NOTE | 2016-12-31 09:50 | CONS ---
Date/Time of Note Date/Time of Note DATE: 12/31/16 TIME: 09:48 Consult Date/Type/Reason Admit Date/Time Dec 28, 2016 at 13:26 Initial Consult Date 12/29/16 Type of Consultation: NEPHROLOGY Subjective remains critical Objective Vital Signs Date Time Temp Pulse Resp B/P Pulse Ox O2 Delivery O2 Flow Rate FiO2 12/31/16 08:00 99 12/31/16 06:15 23 92/57 98 Room Air 12/31/16 04:00 98.2 12/30/16 17:47 2.0 12/30/16 02:51 27 Intake and Output 12/30/16 12/30/16 12/31/16 15:00 23:00 07:00 Intake Total 128.09 ml 355.50 ml 365 ml Output Total 550 ml 330 ml 280 ml Balance -421.91 ml 25.50 ml 85 ml Results/Medications Result Diagram: 12/29/16 1146 12/30/16 0500 Medications Current Medications Mesalamine (Rowasa) 4 gm HS AR Last administered on 12/30/16 21:00; Admin Dose 4 GM; Start 12/28/16 at 21:00 Patient Own Medication 1 ea Q8 PO ; Start 12/28/16 at 22:00 Miscellaneous Information (*Order Clarification Bulletin) MEDICATION REQUIRES CLARIFICATION: Q8H XX Last administered on 12/30/16 17:37; Admin Dose 1 EA; Start 12/28/16 at 17:30 Phytonadione (Vitamin K) 10 mg Q7D IM ; Start 01/04/17 at 18:30 IV Flush 10 ml 10 ml PRN PRN IV IV PROTOCOL; Start 12/28/16 at 19:00 Norepinephrine 16 mg/Dextrose 500 ml @ 1.87 mls/hr TITRATE IV Last administered on 12/30/16 18:09; Admin Dose 11.25 MLS/HR; Start 12/29/16 at 10:00 Fluconazole/ Sodium Chloride 50 ml @ 50 mls/hr Q24H IVPB Last administered on 20:00; Admin Dose 50 MLS/HR; Start 12/29/16 at 20:00 Infliximab/Sodium Chloride (Remicade/NS) 500 ml @ 250 mls/hr ONCE IV ; Start at 14:00; Stop 01/01/17 at 17:00; Status UNV Assessment/Plan Additional Assessment/Plan serum creaitnine is normal Mild hyponatremia good urine output i will continue to follow patient avoid Npehrotoxic agents SHELIA JOHNSON MD Dec 31, 2016 09:50
[2016-12-31] MEDS ORDERED: ALBUMIN HUMAN 25% 100 ML IV ONE (13:00)
--- NOTE | 2016-12-31 16:00 | RADRPT ---
Echocardiogram Report Patient Name: WYATT ISABEL Gender: Male Date: 1935 Study Date: 31-Dec-2016 City Assessor: [facility] Location: 108 Ref. Physician: DARRELL SHIN Quality: Good Procedures: Transthoracic echocardiogram examination. Indications: Hypotension. 2D/M Mode Doppler Measurement Value Normal Range Measurement Value Normal Range AV Peak Adin 0.9 m/sec AV Peak PG 3.4 mmHg LVOT Peak Adin 0.7 m/sec MV E Peak Adin 0.6 m/sec MV A Peak Adin 0.6 m/sec MV E/A 1.0 MV Decel Time 143 msec MV Decel Nicholas 4 MV E/A 1.0 Findings Left Ventricle: Hyperdynamic left ventricular systolic function. The left ventricle is not well visualized. The left ventricular ejection fraction is visually estimated at >65 %. Right Ventricle: Normal right ventricular systolic function. The right ventricle is not well visualized. Left Atrium: The left atrium is not well visualized. Right Atrium: The right atrium is not well visualized. Mitral Valve: The mitral valve is not well visualized. Aortic Valve: The aortic valve is not well visualized. Pericardium: There is an anterior echo free space consistent with epicardial fat pad. IVC: The inferior vena cava is not well visualized. Conclusions 1.Hyperdynamic left ventricular systolic function. The left ventricle is not well visualized. The left ventricular ejection fraction is visually estimated at >65 %. 2.Normal right ventricular systolic function. The right ventricle is not well visualized. Electronically Signed By: Darrell Shin 31-Dec-2016 15:58:56 -0700 Patient Name: WYATT ISABEL Study Date: 31-Dec-2016 [id number]
--- NOTE | 2016-12-31 16:03 | CONS ---
DATE OF ADMISSION: 12/28/2016 DATE OF CONSULTATION: 12/31/2016 DATE OF CONSULTATION: 12/31/2016 REASON FOR CONSULTATION: Hypotension. REQUESTING PHYSICIAN: Dick Chaidez MD HISTORY OF PRESENT ILLNESS: Mr. Ohara is an 81-year-old male with a history of ulcerative colitis, recurrent rectal bleeding, urinary incontinence, gastroesophageal reflux disease, anemia, anorexia, dyslipidemia, BPH, depression , who initially presented from his chronic care facility with increased weakness , lethargy, altered mental status, decreased appetite and decreased blood pressure. Initially upon arrival, afebrile, blood pressure 94/59, pulse 80, respiratory rate 22, saturating 100%. The patient's labs revealed white count 14.2, hemoglobin 11.7, platelet count 82. Sodium 130, potassium 4.5, creatinine 0.9, BUN 45. INR 1.1. UA positive. Stool occult blood positive. The patient underwent a chest x-ray revealing clear lungs. The patient underwent abdominopelvic CT revealing diffuse mucosal thickening along the colon including the rectum, consistent with history of inflammatory bowel disease, enlarged prostate, bilateral pleural effusions, degenerative joint disease, small pericardial effusion. Patient's electrocardiogram revealed normal sinus rhythm, rate 94, normal axis, normal intervals, with nonspecific ST -T-wave abnormalities diffusely. Patient subsequently has been admitted to the ICU and since admit to ICU, has had decreased blood pressures requiring initiation of pressor support. Additionally, the patient has had lower extremity edema concerning for congestive heart failure. Given these findings, cardiology consultation has been requested. PAST MEDICAL HISTORY: As above in HPI. MEDICATIONS CURRENTLY IN HOSPITAL: 1. Vitamin K. 2. Infliximab. 3. Fluconazole. 4. Levophed. 5. Mesalamine. ALLERGIES: NO KNOWN DRUG ALLERGIES. SOCIAL HISTORY: No tobacco, ETOH or illicit drug use. FAMILY HISTORY: Negative for sudden cardiac or early CAD. REVIEW OF SYSTEMS: As above in HPI. CONSTITUTIONAL: No fevers, chills. PULMONARY: No current shortness of breath. CARDIOVASCULAR: Hypotension. GASTROINTESTINAL: No vomiting. GENITOURINARY: No hematuria. MUSCULOSKELETAL: Degenerative joint disease. PSYCHIATRIC: The patient denies depression. NEUROLOGIC: No documented history of CVA. PHYSICAL EXAMINATION VITAL SIGNS: Temperature of 98, blood pressure most recently of 88/62, pulse 110, saturating 100%. GENERAL: The patient is alert, awake, complaining of abdominal pain. NECK: JVP approximately 9 cm of water. CHEST: Upper airway rhovherous sounds with decreased breath sounds at bases bilaterally. HEART: Tachycardic, regular rhythm, normal S1, S2, I/ systolic murmur, nondisplaced PMI. ABDOMEN: Positive bowel sounds, diffuse tenderness to palpation. EXTREMITIES: 1-2+ edema bilaterally, 1+ pulses bilaterally, posterior tibial. LABORATORY DATA: As above in HPI, with most recent from today, white count 11.0 , hemoglobin 9.0, platelet count of 71. Sodium 131, potassium 3.8, creatinine 0.6, BUN 36. INR 1.1. UA positive. IMAGING STUDIES: As above in HPI. No further imaging studies for my review at this time. ECG: As above in HPI. No further electrocardiograms for my review at this time. IMPRESSION 1. Hypotension/shock, question cardiac etiology versus volume depletion and sepsis. 2. Abnormal electrocardiogram, assess for acute coronary syndrome. 3. Tachycardia consistent with sinus tachycardia at this time. 4. Lower extremity edema, assess for congestive heart failure. 5. Inflammatory bowel disease, ongoing treatment, exacerbation. 6. Hyponatremia. 7. Anemia. 8. Leukocytosis. 9. Urinary tract infection. RECOMMENDATIONS: 1. At this time, would maintain the patient on telemetry monitoring to follow rhythm and rate closely. 2. Would check serial EKGs to assess for any significant ongoing changes, EKG in the morning, EKG for complaints of chest pain or change in rhythm. 3. Complete the patient's rule out for myocardial infarction to ensure the patient's constellation of symptoms and EKG abnormalities are not indicative of acute coronary syndrome, acute myocardial infarction. 4. Check a 2D echo to further assess patient's ejection fraction, wall motion and any major valve abnormalities that may be associated with the patient's lower extremity edema and hypotension. 5. Would continue the patient's treatment for inflammatory bowel disease with infliximab and mesalamine. 6. Continue the patient's Levophed pressor support with weaning as tolerated. 7. Will give patient IV fluid bolus and would consider albumin infusions. Thank you for allowing me to take part in the care of this patient. I will continue to follow very closely with you. Further recommendations will be made as the patient progresses through his inpatient hospital clinical course. Dictated By: DARRELL DOOLEY/MEAGAN Conf#: [id number] DID#: [id number] CC: DICK CHAIDEZ MD;*EndCC* MTDD
--- NOTE | 2016-12-31 18:08 | PN ---
DATE: 12/31/2016 CHIEF COMPLAINT: The patient at this time talks very minimally, is confused. He is seen by me for chronic ulcerative colitis with bloody diarrhea. At this time Remicade is being planned to be given to him, basic workup is being done including PPD. He is on steroids and he is having a few loose b owel movements. No bleeding. LABORATORY: Hemoglobin is 9.0, down from 11.7, actually this was on 12/29/2016. We will repeat the blood count. Meanwhile will continue steroids and the patient had a percutaneous endoscopic gastrostomy tube plac ement. Continue G-tube feeding. Will follow him closely. Dictated By: ADA SANTIAGO MD NC/NTS Conf#: [id number] DID#: [id number] CC: RAMBO CHAIDEZ MD;*EndCC*
[2016-12-31 18:19] LABS: TROPONIN-I 0.054 ng/ml (0.00-0.12)
[2016-12-31 18:22] LABS: CK-MB 1.46 ng/ml (0.0-2.4)
[2016-12-31] MEDS: MESALAMINE 4 GM/60 ML ENEMA PR SCH (20:56)
[2016-12-31] MEDS: FLUCONAZOLE 100 MG/NS (PMX) 50 ML IVPB SCH (20:56)
[2016-12-31 21:35] LABS: FORTY EIGHT HOUR READING 0 mm (0-9)
[2017-01-01] VITALS (84 sets, daily range): BP systolic 79–144; BP diastolic 41–65; PULSE 73–111; RESP 17–28
[2017-01-01] MEDS: [UNRECOGNIZED DRUG - REMARK] XX SCH ×3 (01:29→17:30)
[2017-01-01 02:01] LABS: TROPONIN-I 0.061 ng/ml (0.00-0.12)
[2017-01-01 02:10] LABS: CK-MB 1.45 ng/ml (0.0-2.4)
[2017-01-01] MEDS: ASACOL HD PO SCH ×3 (06:00→22:00)
--- NOTE | 2017-01-01 08:28 | PN ---
DATE: WORKING DIAGNOSES: 1. Intractable diarrhea. 2. Advanced Crohn's disease. 3. Malnutrition. 4. Dysphagia on G-tube feeding. 5. Acute renal failure, improved. 6. Metabolic acidosis. 7. Anemia. 8. Hypotension, resolved. On Levophed titration now 9. Dysphagia. 10. Anorexia. 11. Edema. SUMMARY: The patient is an 81-year-old male admitted to the hospital secondary to his dysphagia and intractable diarrhea with Crohn's disease. The patient's CBC was 11.0, hemoglobin 9, platelet coun t 71. PT/INR normal limits. Urinary examination was positive for nitrites, but negative for . Chemistry is carbon dioxide 19, sodium 131. The patient followed by Dr. Marx in nephrology c yajaira for his acute renal failure. The patient's culture shows no MRSA. No C. difficile. Urine c ulture and blood culture were negative. MEDICATIONS: Currently on: 1. Vitamin K 10 mg. 2. Infliximab . 3. Sodium chloride 500 mL IV once. 4. Fluconazole 50 mL an hour q.24 hours. 5. Norepinephrine. 6. Mesalamine 4 g at bedtime p.r.n. 7. G-tube feeding. Intake was ____ and output 1160. The patient ____ weight loss, improving, and edema, and malnutrition. PHYSICAL EXAMINATION: GENERAL: The patient is awake, calm, more awake and not restless. ____ confusion but still disorie nted to time, place and person and n.p.o. VITAL SIGNS: Today shows blood pressure still low at 90/50, pulse 100, respirations 20, . HENT: Head normocephalic, atraumatic. Pupils equal, react to light and accommodation. Sclerae anic teric. Extraocular movements normal limits. Throat clear. No sign of acute infection seen. Facia l skin and scalp normal limits. NECK: Supple, trachea central, no thyroid enlargement, no cervical lymphadenopathy. Carotid pulse normal. No jugular venous distention. CHEST: Normal contour, normal inspiration and expiration. LUNGS: Clear to auscultation and percussion. HEART: Regular sinus rhythm. No rub or murmur. PMI localized in midclavicular line, fourth interc ostal space. ABDOMEN: Umbilicus central. No organomegaly. No tenderness or rebound tenderness. Bowel sounds p ositive. G-tube functioning. GENITOURINARY: External genitalia within normal limits. Chanel catheter in, urine output monitored. EXTREMITIES: Upper and lower extremities. Edema in the left arm and the lower extremities from ___ __ with improving. No decubitus or discoloration. NEUROLOGICAL: The patient awake, , disoriented, calm, not in pain or shortness of breath. Exhaust And Muffler Fitter nial nerves II through XII grossly normal limits. Peripheral nerves, sensory and motor weakness, hy poesthesia in the extremities, no weakness in extremities. Unable to walk or sit. The patient is b edridden, care in progress. SUMMARY: The patient is still having diarrhea ____ the patient or change position and then with no b lood. I discussed the condition with Dr. Marx, nephrology consult, Dr. Watts in GI consult, w ith family and the staff. CONDITION: Stable. PLAN: Will continue same G-tube feeding and Levophed pending his blood pressure to improved. I hilda l follow up. PROGNOSIS: Fair to guarded. CODE STATUS: FULL CODE. The patient in ICU. Time spent with patient and with record and staff and discussion is 35 minutes. Dictated By: RAMBO POWELL/MEAGAN Conf#: [id number] DID#: [id number]
--- NOTE | 2017-01-01 08:47 | PN ---
DATE: 12/30/2016 WORKING DIAGNOSES: 1. Severe dysphagia, anorexia. 2. Severe malnutrition. 3. Chronic disease with intractable diarrhea with rectal bleeding. 4. Dysphagia. 5. Anemia 6. Acute renal failure. 7. Sepsis. 8. Hyponatremia. 9. Acidosis. 10. Hypocalcemia. 11. Neutrophilia. 12. Thrombocytopenia. 13. Prostatic hypertension. 14. ____ disorder. 15. Major depression. VITAL SIGNS: Today, temperature 97.6, pulse 98, respirations 22, blood pressure 87/45 with vasopres sors. O2 saturation 100% on room air. Intake was 2290, output is 2395. MEDICATIONS: Currently, the patient is on cefazolin, IV propofol 20 with titration, ferrous sulfat e 50 mg p.r.n., fentanyl patch 100 mcg q.3h. Currently on norepinephrine 1 mcg per minute, mesala mine 4 g at bedtime p.r.n. SUMMARY: The patient had a CBC yesterday and infliximab 272 mg, sodium chloride 136 mL an hour give n IV. Blood culture negative. C. diff negative. MRSA negative. Urine culture negative. Sodium 1 31 today. Carbon dioxide 19. BUN was 45 yesterday, today is 36. Calcium was 7.47. Phosphorus too l ow. CBC today 11.0, WBC was 14.2, hemoglobin 9.0, was 11.7 after appropriate hydration. Platelet co unt was 82 went up to 71. Urine is nitrite positive. Blood cultures negative now. X-ray and CT sc an of abdomen shows diffuse mucosal thickening involving the colon including the rectum, consistent with history of Crohn's disease, diverticulosis of the sigmoid colon, anasarca, enlarged prostate gl and with trabeculation near bladder with chronic obstruction. Bilateral pleural effusion with atele ctasis. Chanel catheter in the bladder with collapsed bladder, osteoarthritis of thoracic lumbosacra l spine, atherosclerosis and vascular disease. Small pericardial effusion and small left inguinal h ernia. No ____ medially. The patient had PICC line insertion and 2 x-rays done was appropriate. PHYSICAL EXAMINATION: GENERAL: The patient is awake, confused, lethargic, weak, pale, disoriented to time, place, and per son. HEENT: Normocephalic, atraumatic. Pupils equal, react to light and accommodation. Sclerae anicter ic. Extraocular movements normal limits. Throat clear. No sign of acute infection seen. Facial s kin and scalp within normal limits. NECK: Supple, trachea central, no thyroid enlargement, no cervical lymphadenopathy. Carotid pulse normal. No jugular venous distention. CHEST: Normal contour. Normal inspiration and expiration. LUNGS: Clear to auscultation and percussion. HEART: Regular sinus rhythm. PMI localized in midclavicular line, fourth intercostal space. ABDOMEN: Umbilicus central G-tube placed by Dr. Watts yesterday. Will start feeding now and ismael ating it, no vomiting with recurrent 2 bowel movements loose this morning, with no bleeding. Abdomen soft, mild tenderness. Bowel sounds positive. GENITOURINARY: External genitalia within normal limits. Chanel catheter in. EXTREMITIES: Upper and lower extremities normally shaped at this moment. No clubbing, no cyanosis or deformity. Good peripheral pulses, 2+ edema in the arms and legs secondary to malnutrition. The fluid for his hypotension. NEUROLOGICAL: Cranial nerves II through XII grossly normal limits. Peripheral nerves, sensory and motor normal limits. Gait unable secondary to severe myopathy and weakness in extremities with hype sthesia. IMPRESSION: 1. Dysphagia, anorexia, weight loss status post PEG placement by Dr. Watts yesterday and acute lindy al failure. Followed by Dr. Olsen. 2. Leukocytosis, possible sepsis followed by Dr. Corbett. The patient on antibiotics now. 3. Crohn's disease with intractable diarrhea. 4. Chronic anemia, severe malnutrition, generalized edema with anasarca and hypoproteinemia and clayton lure to thrive. 5. Acute encephalopathy, hypotension on vasopressor. Incontinent of urine with Chanel catheter in, muscle weakness, lethargy. PLAN: The patient will continue same medication. G-tube feeding started in the morning with Fibers ource 50 mL an hour. Currently he is on fluconazole IV and then vitamin K was given yesterday. Prot einuria with TPN ____. We will follow up. PROGNOSIS: Fair to guarded. CODE STATUS: FULL CODE. Dictated By: RAMBO POWELL/MEAGAN Conf#: [id number] DID#: [id number]
[2017-01-01 09:53] LABS: ADD SCAN DIFF NO
[2017-01-01 10:00] LABS: ABNORMAL IP MESSAGE 1; HEMATOCRIT 25.8 % (42.0-52.0); HEMOGLOBIN 8.2 g/dl (14.0-18.0); MEAN CORPUSCULAR HEMOGLOBIN 31.4 pg (29.0-33.0); MEAN CORPUSCULAR HGB CONC 31.8 g/dl (32.0-37.0); MEAN CORPUSCULAR VOLUME 98.9 fl (82.0-101.0); MEAN PLATELET VOLUME 12.2 fl (7.4-10.4); PLATELET COUNT 56 10^3/UL (140-415); RED BLOOD COUNT 2.61 10^6/ul (4.70-6.10); RED CELL DISTRIBUTION WIDTH 13.7 % (11.5-14.5)
[2017-01-01 10:24] LABS: ALBUMIN 1.7 g/dl (3.3-4.9); ALBUMIN/GLOBULIN RATIO 0.8; BILIRUBIN,INDIRECT 0.5 mg/dl (0-1.1); BILIRUBIN,TOTAL 0.5 mg/dl (0.2-1.3); CALCIUM 7.2 mg/dl (8.4-10.2); CREATININE 0.42 mg/dl (0.61-1.24); POTASSIUM 4.1 mmol/L (3.5-5.1); TOTAL PROTEIN 3.8 g/dl (6.1-8.1)
[2017-01-01 10:36] LABS: INR 1.22; PROTIME 15.5 Sec (12.2-14.2); PT RATIO 1.2
--- NOTE | 2017-01-01 10:40 | CONS ---
Date/Time of Note Date/Time of Note DATE: 01/01/17 TIME: 10:34 Assessment/Plan Assessment/Plan Chief Complaint/Hosp Course IMPRESSION 1. Hypotension/shock, question cardiac etiology versus volume depletion and sepsis.-on levophed. NL EF>65 by echo this admit 2. Abnormal electrocardiogram, assess for acute coronary syndrome.-negative troponin x 3 3. Tachycardia consistent with sinus tachycardia at this time.-to low 100's 4. Lower extremity edema, assess for congestive heart failure. 5. Inflammatory bowel disease, ongoing treatment, exacerbation. 6. Hyponatremia. 7. Anemia. 8. Leukocytosis. 9. Urinary tract infection. Recc: -Tele -serial ecg's -Continue abx's/antifungals/infiximab/mesalamine -Wean levo as tolerated -F/U cx data Problems: Consultation Date/Type/Reason Admit Date/Time Dec 28, 2016 at 13:26 Initial Consult Date 12/29/16 Type of Consultation: cardiology Reason for Consultation Hypotension Referring Provider: RAMBO CHAIDEZ MD Exam/Review of Systems Vital Signs Vitals Vital Signs Date Time Temp Pulse Resp B/P Pulse Ox O2 Delivery O2 Flow Rate FiO2 01/01/17 10:15 92 22 95/52 99 01/01/17 10:00 Room Air 01/01/17 08:00 98.4 12/31/16 17:35 21 12/30/16 17:47 2.0 Intake and Output 12/31/16 12/31/16 01/01/17 15:00 23:00 07:00 Intake Total 644 ml 716.62 ml 541.85 ml Output Total 250 ml 340 ml 295 ml Balance 394 ml 376.62 ml 246.85 ml Exam Review of Systems: CONSTITUTIONAL: No fevers, chills. PULMONARY: No sob CARDIOVASCULAR: No chest pain/palpitations GASTROINTESTINAL: No nausea/vomiting. GENITOURINARY: No hematuria/dysuria. MUSCULOSKELETAL: No myagias/arthalgias. PSYCHIATRIC: The patient denies depression. NEUROLOGIC: No weakness Constitutional: alert, oriented Psych: no complaints Head: normocephalic ENMT: mucosa pink and moist Neck: jvd (9 cm water), supple Respiratory: diminished breath sounds (at bases/B) Cardiovascular: regular rate and rhythm Gastrointestinal: non-tender, soft Musculoskeletal: muscle tone (normal) Extremities: edema (none) Neurological: other (No focal deficits) Results Result Diagram: 01/01/17 0940 01/01/17 0940 Results 24 hrs Laboratory Tests Test 12/31/16 17:35 01/01/17 01:20 01/01/17 09:40 Creatine Kinase 32 27 Creatine Kinase Index 4.6 5.4 Creatinine Kinase MB (Mass) 1.46 1.45 Troponin I 0.054 0.061 White Blood Count 8.0 # Red Blood Count 2.61 L Hemoglobin 8.2 L Hematocrit 25.8 L Mean Corpuscular Volume 98.9 Mean Corpuscular Hemoglobin 31.4 Mean Corpuscular Hemoglobin Concent 31.8 L Red Cell Distribution Width 13.7 Platelet Count 56 #L Mean Platelet Volume 12.2 H Neutrophils % Eosinophils % Neutrophils # Eosinophils # Sodium Level 130 L Potassium Level 4.1 Chloride Level 109 Carbon Dioxide Level 23 Anion Gap 2 L Blood Urea Nitrogen 18 Creatinine 0.42 L Glucose Level 175 Calcium Level 7.2 L Total Bilirubin 0.5 Direct Bilirubin 0.00 Indirect Bilirubin 0.5 Aspartate Amino Transf (AST/SGOT) 23 Alanine Aminotransferase (ALT/SGPT) 35 Alkaline Phosphatase 115 Total Protein 3.8 L Albumin 1.7 L Globulin 2.10 Albumin/Globulin Ratio 0.80 Thyroid Stimulating Hormone (TSH) Pending Medications Medications Current Medications Mesalamine (Rowasa) 4 gm HS [place] Last administered on 12/31/16 20:56; Admin Dose 4 GM; Start 12/28/16 at 21:00 Patient Own Medication 1 ea Q8 PO ; Start 12/28/16 at 22:00 Miscellaneous Information (*Order Clarification Bulletin) MEDICATION REQUIRES CLARIFICATION: Q8H XX Last administered on 12/31/16 09:30; Admin Dose 1 EA; Start 12/28/16 at 17:30 Phytonadione (Vitamin K) 10 mg Q7D IM ; Start 01/04/17 at 18:30 IV Flush 10 ml 10 ml PRN PRN IV IV PROTOCOL; Start 12/28/16 at 19:00 Norepinephrine 16 mg/Dextrose 500 ml @ 1.87 mls/hr TITRATE IV Last administered on 12/31/16 18:09; Admin Dose 18.75 MLS/HR; Start 12/29/16 at 10:00 Fluconazole/ Sodium Chloride 50 ml @ 50 mls/hr Q24H IVPB Last administered on t 20:56; Admin Dose 50 MLS/HR; Start 12/29/16 at 20:00 Infliximab/Sodium Chloride (Remicade/NS) 500 ml @ 250 mls/hr ONCE IV ; Start at 14:00; Stop 01/01/17 at 17:00; Status UNV DARRELL THAO Jan 01, 2017 10:40
[2017-01-01 10:54] LABS: THYROID STIMULATING HORMONE 2.29 MIU/L (0.465-4.680)
[2017-01-01] MEDS ORDERED: INFLIXIMAB IV SCH (12:00)
[2017-01-01] MEDS ORDERED: SOD CHLORIDE 0.9% IV SCH (12:00)
[2017-01-01 13:16] LABS: EOSINOPHILS # 0.1 10^3/ul (0.0-0.5); LYMPHOCYTES # 0.3 10^3/ul (0.8-2.9); MONOCYTE # 0.2 10^3/ul (0.3-0.9); NEUTROPHIL # 5.2 10^3/ul (1.6-7.5); PLATELET ESTIMATE PLT APPEAR DECREASED
--- NOTE | 2017-01-01 15:31 | CONS ---
Date/Time of Note Date/Time of Note DATE: 01/01/17 TIME: 15:29 Assessment/Plan Assessment/Plan Chief Complaint/Hosp Course - ACUTE KIDNEY INJURY - CHRONIC KIDNEY DISEASE - SEPTIC SHOCK - RESPIRATORY FAILURE - HYPERKALEMIA - ANEMIA PLAN: HEMODYNAMIC SUPPORT AT THIS POINT IMPROVING RENAL FUNCTION BACK TO BASE LINE WITH IMPROVING POTASSIUM MONITOR H/H AVOIDING NEPHROTOXIC AGENTS FOLLOW UP WITH IRON PANEL Problems: Consultation Date/Type/Reason Admit Date/Time Dec 28, 2016 at 13:26 Initial Consult Date 12/29/16 Type of Consultation: NEPHROLOGY Reason for Consultation - ACUTE KIDNEY INJURY Referring Provider: RAMBO CHAIDEZ MD 24 HR Interval Summary Subjective hx not possible: pt non-verbal Constitutional: no complaints Exam/Review of Systems Vital Signs Vitals Vital Signs Date Time Temp Pulse Resp B/P Pulse Ox O2 Delivery O2 Flow Rate FiO2 01/01/17 13:45 105 22 93/56 98 01/01/17 13:00 Room Air 01/01/17 12:00 98.7 12/31/16 17:35 21 12/30/16 17:47 2.0 Intake and Output 12/31/16 12/31/16 01/01/17 15:00 23:00 07:00 Intake Total 644 ml 716.62 ml 541.85 ml Output Total 250 ml 340 ml 295 ml Balance 394 ml 376.62 ml 246.85 ml Exam Constitutional: non-verbal Psych: no complaints Neck: supple Respiratory: crackles/rales Cardiovascular: regular rate and rhythm, systolic murmur Gastrointestinal: soft Results Result Diagram: 01/01/17 0940 01/01/17 0940 Results 24 hrs Laboratory Tests Test 12/31/16 17:35 01/01/17 01:20 01/01/17 09:40 Creatine Kinase 32 27 Creatine Kinase Index 4.6 5.4 Creatinine Kinase MB (Mass) 1.46 1.45 Troponin I 0.054 0.061 White Blood Count 8.0 # Red Blood Count 2.61 L Hemoglobin 8.2 L Hematocrit 25.8 L Mean Corpuscular Volume 98.9 Mean Corpuscular Hemoglobin 31.4 Mean Corpuscular Hemoglobin Concent 31.8 L Red Cell Distribution Width 13.7 Platelet Count 56 #L Mean Platelet Volume 12.2 H Neutrophils % 65.0 Band Neutrophils % 28.0 H Lymphocytes % 4.0 L Monocytes % 2.0 Eosinophils % 1.0 Neutrophils # 5.2 Lymphocytes # 0.3 L Monocytes # 0.2 L Eosinophils # 0.1 Platelet Estimate PLT APPEAR DECREASED Prothrombin Time 15.5 H Prothrombin Time Ratio 1.2 INR International Normalized Ratio 1.22 Sodium Level 130 L Potassium Level 4.1 Chloride Level 109 Carbon Dioxide Level 23 Anion Gap 2 L Blood Urea Nitrogen 18 Creatinine 0.42 L Glucose Level 175 Calcium Level 7.2 L Total Bilirubin 0.5 Direct Bilirubin 0.00 Indirect Bilirubin 0.5 Aspartate Amino Transf (AST/SGOT) 23 Alanine Aminotransferase (ALT/SGPT) 35 Alkaline Phosphatase 115 Total Protein 3.8 L Albumin 1.7 L Globulin 2.10 Albumin/Globulin Ratio 0.80 Thyroid Stimulating Hormone (TSH) 2.290 Medications Medications Current Medications Mesalamine (Rowasa) 4 gm HS [place] Last administered on 12/31/16 20:56; Admin Dose 4 GM; Start 12/28/16 at 21:00 Patient Own Medication 1 ea Q8 PO ; Start 12/28/16 at 22:00 Miscellaneous Information (*Order Clarification Bulletin) MEDICATION REQUIRES CLARIFICATION: Q8H XX Last administered on 12/31/16 09:30; Admin Dose 1 EA; Start 12/28/16 at 17:30 Phytonadione (Vitamin K) 10 mg Q7D IM ; Start 01/04/17 at 18:30 IV Flush 10 ml 10 ml PRN PRN IV IV PROTOCOL; Start 12/28/16 at 19:00 Norepinephrine 16 mg/Dextrose 500 ml @ 1.87 mls/hr TITRATE IV Last administered on 12/31/16 18:09; Admin Dose 18.75 MLS/HR; Start 12/29/16 at 10:00 Fluconazole/ Sodium Chloride 50 ml @ 50 mls/hr Q24H IVPB Last administered on 20:56; Admin Dose 50 MLS/HR; Start 12/29/16 at 20:00 Infliximab/Sodium Chloride (Remicade/NS) 500 ml @ 250 mls/hr ONCE IV ; Start at 14:00; Stop 01/01/17 at 17:00; Status GONZALEZ CHAO MD Jan 01, 2017 15:31
--- NOTE | 2017-01-01 18:22 | PN ---
DATE: 01/01/2017 WORKING DIAGNOSES: 1. Dysphagia. 2. Acute Crohn's disease with intractable diarrhea. 3. Progressive anemia. 4. Status post acute renal failure, improving now 5. Malnutrition, dysphagia. 6. Depression. 7. Abdominal pain. 8. Peptic ulcer disease, status post PEG placement. 9. Hypotension. 10. Difficulty walking with severe muscle weakness. CONSULTATIONS: 1. Dr. Watts in GI consult. 2. Dr. Mcallister nephrology consult. 3. Dr. Shin in cardiology consult. SUMMARY: The patient is an 81-year-old male admitted to 12/28/2016 for his intractable vomiting, de hydration and weakness. MEDICATIONS: Currently on: 1. Vitamin K 10 mg once a day. 2. Infliximab. 2. Sodium chloride 2015 mL hour. 3. Fluconazole sodium chloride 50 mL q.24h. 4. Norepinephrine and dextrose will stop. 5. Rowasa 4 mg at bedtime. 6. ____. LABORATORY TESTS: Today showed Chem 7: Sodium 130 low, potassium 4.1, chloride 104, carbon dioxide went up to 23 was 19 and then up to a level 2, BUN 18, creatinine 0.42, calcium 7.2, total protein 3.8. CBC shows WBC 8, hemoglobin went down to 8.2, was 11.7 from dehydration and then platelet coun t 56 low, neutrophils 65 to 93. MRSA negative. C. diff negative. Stool culture negative. Urine c ulture negative. Blood culture negative. X-ray done on 12/29/2016 and 12/28/2016 earlier. PHYSICAL EXAMINATION: VITAL SIGNS: The patient's vital signs today show pulse 105, respirations 22, pulse ox 98 on room a ir, blood pressure 93/56. Intake for 24 hours 1870 output. Positive 1020. GENERAL: The patient is awake, calm, looks stated age, weak, lethargic, aphasic, dysphagic, unable to eat with severe anoxia with recurrent diarrhea, rectal bleeding. HEENT: Head normocephalic, atraumatic. Pupils equal, react to light and accommodation. Sclerae an icteric. Extraocular movements within normal limits. Throat clear. No sign of acute infection see n. Facial skin and scalp within normal limits. Pale face. NECK: Supple, trachea central, no thyroid enlargement, no cervical lymphadenopathy. Carotid pulse normal. No jugular venous distention. CHEST: Normal contour. Normal inspiration and expiration. LUNGS: Clear to auscultation and percussion. HEART: Regular sinus rhythm. No rub or murmur. PMI localized in midclavicular line, fourth interc ostal space. ABDOMEN: Umbilicus central. G-tube in epigastric area with generalized tenderness. No masses felt . EKG on admission shows normal sinus rhythm with nonspecific ST-T wave abnormality. GENITOURINARY: External genitalia within normal limits. Rectal examination deferred, the patient u ncooperative. EXTREMITIES: Upper and lower extremities normally shaped at this moment. No clubbing, no cyanosis or deformity. Good pedal pulse with edema in the left arm and the legs weak muscles with difficulty moving in bed. Skin intact. No decubitus. NEUROLOGICAL: Patient awake, confused, depressed, looks stated age, weak, not in pain or shortness of breath. TB skin test done pending the results. Cardiac enzymes shows normal CK-MB was 1.45. T roponin 0.05 went up to 0.06. IMPRESSION: 1. Progressive anemia of chronic disease with intractable diarrhea. 2. Rule out orthostatic hypotension. 3. Dysphagia, G-tube feeding. Chronic abdominal pain, major depression, malnutrition. PLAN: Patient's condition is stable now. We will monitor his vital signs. The patient agreed to e nema for Crohn's disease. The patient had followup by Dr. Watts. Remicade was ordered for him. CONDITION: Stable now. PROGNOSIS: Guarded. CODE STATUS: FULL CODE. Discussed condition with the consultants and the staff and will follow up. Will monitor hemoglobin with improvement of diarrhea and dehydration. We will follow up. Dictated By: RAMBO POWELL/MEAGAN Conf#: [id number] DID#: [id number]
--- NOTE | 2017-01-01 19:05 | CONS ---
DATE OF ADMISSION: 12/28/2016 DATE OF CONSULTATION: HISTORY OF PRESENT ILLNESS: The patient has no specific complaints. Upon discussion with the nurse, the patient has some diarrhea with not much of his blood in the stoo ls. No abdominal pain, no nausea, no vomiting. PHYSICAL EXAMINATION: VITAL SIGNS: The patient is still on Levophed. Blood pressure is around 90 systolic, pulse is 92. CARDIOVASCULAR: Normal heart sounds. RESPIRATORY: Normal breath sounds. ABDOMEN: Shows soft abdomen. G-tube is in place. LABORATORY WORKUP: WBC count is 8000, hemoglobin is 8.2. The prothrombin time 15.5. Potassium is 3.1. Bilirubin 0.5, AST 23, ALT 35, alkaline phosphatase is 115. CLINICAL IMPRESSION: The patient has ulcerative colitis, has bloody diarrhea, and he is currently o n steroids. Remicade was supposed this started. I will check whether it has been started or not. PLAN: Continue steroids and current management. Also continue Lovaza enema. Dictated By: ADA CASTELLON/NTS Conf#: [id number] DID#: [id number] CC: RAMBO CHAIDEZ MD; ADA SANTIAGO MD;*EndCC*
[2017-01-01] MEDS: FLUCONAZOLE 100 MG/NS (PMX) 50 ML IVPB SCH (20:17)
[2017-01-01] MEDS: MESALAMINE 4 GM/60 ML ENEMA PR SCH (21:00)
[2017-01-01 21:19] LABS: SEVENTY TWO HOUR READING 0 mm (0-9)
[2017-01-02] VITALS (93 sets, daily range): BP systolic 62–110; BP diastolic 43–87; PULSE 85–124; RESP 17–33
[2017-01-02] MEDS: [UNRECOGNIZED DRUG - REMARK] XX SCH ×3 (01:30→17:30)
[2017-01-02] MEDS ORDERED: LEVALBUTEROL (NEB) 1.25 MG/0.5 ML AMP HHN PRN (02:30)
[2017-01-02] MEDS ORDERED: IPRATROPIUM (NEB) 0.5 MG/2.5 ML AMP HHN PRN (02:30)
[2017-01-02] MEDS ORDERED: GUAIFENESIN/CODEINE 5ML CUP PO PRN (02:30)
[2017-01-02] MEDS: ASACOL HD PO SCH ×3 (05:33→22:00)
--- NOTE | 2017-01-02 07:55 | CONS ---
Date/Time of Note Date/Time of Note DATE: 01/02/17 TIME: 07:54 Assessment/Plan Assessment/Plan Chief Complaint/Hosp Course - ACUTE KIDNEY INJURY - CHRONIC KIDNEY DISEASE - SEPTIC SHOCK - RESPIRATORY FAILURE - HYPERKALEMIA - ANEMIA PLAN: HEMODYNAMIC SUPPORT AT THIS POINT IMPROVING RENAL FUNCTION BACK TO BASE LINE WITH IMPROVING POTASSIUM MONITOR H/H AVOIDING NEPHROTOXIC AGENTS FOLLOW UP WITH IRON PANEL Problems: Consultation Date/Type/Reason Admit Date/Time Dec 28, 2016 at 13:26 Initial Consult Date 12/29/16 Type of Consultation: NEPHROLOGY Reason for Consultation - Acute Kidney Injury Referring Provider: RAMBO CHAIDEZ MD 24 HR Interval Summary Subjective hx not possible: pt non-verbal Constitutional: improved Exam/Review of Systems Vital Signs Vitals Vital Signs Date Time Temp Pulse Resp B/P Pulse Ox O2 Delivery O2 Flow Rate FiO2 01/02/17 07:30 102 23 101/58 98 Room Air 01/02/17 04:00 98.0 12/31/16 17:35 21 12/30/16 17:47 2.0 Intake and Output 01/01/17 01/01/17 01/02/17 15:00 23:00 07:00 Intake Total 450 ml 479.36 ml 558.12 ml Output Total 265 ml 195 ml 195 ml Balance 185 ml 284.36 ml 363.12 ml Exam Constitutional: non-verbal Psych: no complaints Neck: supple Respiratory: crackles/rales Cardiovascular: edema, regular rate and rhythm, systolic murmur Gastrointestinal: soft Results Result Diagram: 01/01/17 0940 01/01/17 0940 Results 24 hrs Laboratory Tests Test 01/01/17 09:40 White Blood Count 8.0 # Red Blood Count 2.61 L Hemoglobin 8.2 L Hematocrit 25.8 L Mean Corpuscular Volume 98.9 Mean Corpuscular Hemoglobin 31.4 Mean Corpuscular Hemoglobin Concent 31.8 L Red Cell Distribution Width 13.7 Platelet Count 56 #L Mean Platelet Volume 12.2 H Neutrophils % 65.0 Band Neutrophils % 28.0 H Lymphocytes % 4.0 L Monocytes % 2.0 Eosinophils % 1.0 Neutrophils # 5.2 Lymphocytes # 0.3 L Monocytes # 0.2 L Eosinophils # 0.1 Platelet Estimate PLT APPEAR DECREASED Prothrombin Time 15.5 H Prothrombin Time Ratio 1.2 INR International Normalized Ratio 1.22 Sodium Level 130 L Potassium Level 4.1 Chloride Level 109 Carbon Dioxide Level 23 Anion Gap 2 L Blood Urea Nitrogen 18 Creatinine 0.42 L Glucose Level 175 Calcium Level 7.2 L Total Bilirubin 0.5 Direct Bilirubin 0.00 Indirect Bilirubin 0.5 Aspartate Amino Transf (AST/SGOT) 23 Alanine Aminotransferase (ALT/SGPT) 35 Alkaline Phosphatase 115 Total Protein 3.8 L Albumin 1.7 L Globulin 2.10 Albumin/Globulin Ratio 0.80 Thyroid Stimulating Hormone (TSH) 2.290 Medications Medications Current Medications Mesalamine (Rowasa) 4 gm HS [place] Last administered on 01/01/17 21:00; Admin Dose 4 GM; Start 12/28/16 at 21:00 Patient Own Medication 1 ea Q8 PO ; Start 12/28/16 at 22:00 Miscellaneous Information (*Order Clarification Bulletin) MEDICATION REQUIRES CLARIFICATION: Q8H XX Last administered on 12/31/16 09:30; Admin Dose 1 EA; Start 12/28/16 at 17:30 Phytonadione (Vitamin K) 10 mg Q7D IM ; Start 01/04/17 at 18:30 IV Flush 10 ml 10 ml PRN PRN IV IV PROTOCOL; Start 12/28/16 at 19:00 Norepinephrine 16 mg/Dextrose 500 ml @ 1.87 mls/hr TITRATE IV Last administered on 01/01/17 22:46; Admin Dose 22.5 MLS/HR; Start 12/29/16 at 10:00 Fluconazole/ Sodium Chloride 50 ml @ 50 mls/hr Q24H IVPB Last administered on 20:17; Admin Dose 50 MLS/HR; Start 12/29/16 at 20:00 Infliximab/Sodium Chloride (Remicade/NS) 500 ml @ 250 mls/hr ONCE IV ; Start at 14:00; Stop 01/01/17 at 17:00; Status UNV Collagenase (Santyl) 1 applic DAILY TOP ; Start 01/02/17 at 09:00 GONZALEZ NATION MD Jan 02, 2017 07:54
[2017-01-02] MEDS ORDERED: EPINEPHrine 1 MG INJ SC STA (09:09)
[2017-01-02] MEDS ORDERED: DIPHENHYDRAMINE 50 MG INJ IV SCH (09:30)
[2017-01-02] MEDS ORDERED: METHYLPREDNISOLONE 40 MG INJ IV SCH (09:30)
[2017-01-02] MEDS ORDERED: ONDANSETRON 4 MG INJ IV PRN (09:30)
[2017-01-02] MEDS: COLLAGENASE 30 GM TUBE TOP SCH (10:22)
[2017-01-02] MEDS ORDERED: SOD CHLORIDE 0.9% IV SCH (11:30)
[2017-01-02] MEDS ORDERED: INFLIXIMAB IV SCH (11:30)
--- NOTE | 2017-01-02 15:46 | CONS ---
Date/Time of Note Date/Time of Note DATE: 01/02/17 TIME: 15:43 Assessment/Plan Assessment/Plan Additional Assessment/Plan 1. Hypotension/shock, question cardiac etiology versus volume depletion and sepsis.-on levophed. NL EF>65 by echo this admit - BP stable, but still on levo gtt - not able to wean off now 2. Abnormal electrocardiogram, assess for acute coronary syndrome.-negative troponin x 3 - no intervention planned 3. Tachycardia consistent with sinus tachycardia at this time.-to low 100's - HR better now 4. Lower extremity edema, assess for congestive heart failure. 5. Inflammatory bowel disease, ongoing treatment, exacerbation. 6. Hyponatremia- Rx with renal team 7. Anemia. 8. Leukocytosis - on anti-Bx, con't to follow 9. Urinary tract infection. Consultation Date/Type/Reason Admit Date/Time Dec 28, 2016 at 13:26 Initial Consult Date 12/29/16 Type of Consultation: NEPHROLOGY Referring Provider: RAMBO CHAIDEZ MD 24 HR Interval Summary Free Text/Dictation No acute change - HR better - still low BP - on levophed gtt now. ROS: No fever, no chills, no nausea, no vomiting, no diarrhea/constipation No recent weight changes No chest pain, no PND, no orthopnea No dizziness, blurred vision No thirst, no heat or cold intolerance Exam/Review of Systems Vital Signs Vitals Vital Signs Date Time Temp Pulse Resp B/P Pulse Ox O2 Delivery O2 Flow Rate FiO2 01/02/17 13:36 98.5 01/02/17 12:00 105 01/02/17 09:30 28 89/57 98 Room Air 12/31/16 17:35 21 12/30/16 17:47 2.0 Intake and Output 01/01/17 01/01/17 01/02/17 15:00 23:00 07:00 Intake Total 450 ml 479.36 ml 558.12 ml Output Total 265 ml 195 ml 195 ml Balance 185 ml 284.36 ml 363.12 ml Exam General: WN/WD/NAD, AOx 2-3 HEENT: Unicetric/atraumatic/EOMI (follow commands) NECK: JVD elevated, no thyromegaly Lymph: no lymphadenopathy HEART: regular with no S3, II/ systolic murmur at apex LUNGS: Coarse sounds ABD: soft, NT, ND, +BS : Intact Neuro: non focal SKIN: chronic changes EXT: trace edema Results Result Diagram: 01/01/1793901/01/17939 Medications Medications Current Medications Mesalamine (Rowasa) 4 gm HS [place] Last administered on 01/01/17 21:00; Admin Dose 4 GM; Start 12/28/16 at 21:00 Patient Own Medication 1 ea Q8 PO ; Start 12/28/16 at 22:00 Miscellaneous Information (*Order Clarification Bulletin) MEDICATION REQUIRES CLARIFICATION: Q8H XX Last administered on 12/31/16 09:30; Admin Dose 1 EA; Start 12/28/16 at 17:30 Phytonadione (Vitamin K) 10 mg Q7D IM ; Start 01/04/17 at 18:30 IV Flush 10 ml 10 ml PRN PRN IV IV PROTOCOL; Start 12/28/16 at 19:00 Norepinephrine 16 mg/Dextrose 500 ml @ 1.87 mls/hr TITRATE IV Last administered on 01/01/17 22:46; Admin Dose 22.5 MLS/HR; Start 12/29/16 at 10:00 Fluconazole/ Sodium Chloride (Diflucan 100 Mg/ NS (Pmx)) 50 ml @ 50 mls/hr Q24H IVPB Last administered on 01/01/17 20:17; Admin Dose 50 MLS/HR; Start 12/29/16 at 20:00 Collagenase (Santyl) 1 applic DAILY TOP Last administered on 01/02/17 10:22; Admin Dose 1 APPLIC; Start 01/02/17 at 09:00 Ondansetron HCl (Zofran Inj) 4 mg Q6H PRN IV NAUSEA AND/OR VOMITING; Start 08/10 at 09:30 ARTEMIO INIGUEZ MD Jan 02, 2017 15:46
--- NOTE | 2017-01-02 18:28 | RADRPT ---
Vent Rate: 92 bpm RR Interval: 0 msec CO Interval: 128 msec QRS Duration: 68 msec QT Interval: 268 msec QTC Interval: 331 msec P-R-T Viola: 74 - 87 - -36 degrees Normal sinus rhythm Nonspecific ST and T wave abnormality Abnormal ECG Electronically Signed By: Thee Akhtar [id number]
--- NOTE | 2017-01-02 19:49 | PN ---
DATE: SUBJECTIVE: The patient has no specific complaints. OBJECTIVE: The patient is lethargic. Blood pressure is around 97/60. Patient on an increased dose of Levophed. The patient received Remicade. Pulse is 92. He still continues to have significant liquid diarrhea. ABDOMEN: Showed status post gastrostomy tube. Abdomen is soft. LABORATORY WORKUP: Potassium 4.1, sodium 130, BUN is 18, creatinine 0.42, the albumin is low at 1.7 . The coagulation prothrombin time 15.5, WBC count is down to 8000, hemoglobin is 8.2. IMPRESSION: The patient having profuse diarrhea secondary to chronic ulcerative colitis. The patie nt is on steroids. The patient is on Remicade, has been started, he is also on Rowasa enemas. PLAN: Recommend add Questran 1 packet b.i.d. Recommend acidophilus 1 tablet b.i.d. Recommend [place] 5 mL 4 times a day, and follow the patient closely. Dictated By: ADA CASTELLON/MEAGAN Conf#: [id number] DID#: [id number]
[2017-01-02] MEDS: CHOLESTYRAMINE 4 GM PACKET PO SCH (20:22)
[2017-01-02] MEDS: FLUCONAZOLE 100 MG/NS (PMX) 50 ML IVPB SCH (20:23)
[2017-01-02] MEDS: MESALAMINE 4 GM/60 ML ENEMA PR SCH (21:43)
[2017-01-02] MEDS: DIPHENOXYLATE/ATROPINE 5 ML CUP PO SCH (21:43)
[2017-01-02] MEDS: L ACIDOPHIL/B LACTIS/B LONGUM CAPSULE PO SCH (21:43)
[2017-01-03] VITALS (91 sets, daily range): BP systolic 57–127; BP diastolic 44–100; PULSE 95–132; RESP 15–38
[2017-01-03] MEDS: [UNRECOGNIZED DRUG - REMARK] XX SCH ×3 (01:30→17:30)
[2017-01-03 04:52] LABS: ADD SCAN DIFF NO
[2017-01-03 05:01] LABS: ABNORMAL IP MESSAGE 1; BASOPHILS % 0.1 % (0.0-2.0); EOSINOPHILS % 0.1 % (0.0-7.0); HEMATOCRIT 25.8 % (42.0-52.0); HEMOGLOBIN 8.3 g/dl (14.0-18.0); LYMPHOCYTES # 1.3 10^3/ul (0.8-2.9); LYMPHOCYTES % 9.5 % (15.0-51.0); MEAN CORPUSCULAR HEMOGLOBIN 31.8 pg (29.0-33.0); MEAN CORPUSCULAR HGB CONC 32.2 g/dl (32.0-37.0); MEAN CORPUSCULAR VOLUME 98.9 fl (82.0-101.0); MEAN PLATELET VOLUME 12.4 fl (7.4-10.4); MONOCYTE # 0.5 10^3/ul (0.3-0.9); NEUTROPHIL # 11.6 10^3/ul (1.6-7.5); NEUTROPHILS % 85.5 % (39.0-77.0); RED BLOOD COUNT 2.61 10^6/ul (4.70-6.10); RED CELL DISTRIBUTION WIDTH 13.3 % (11.5-14.5); WHITE BLOOD COUNT 13.5 10^3/ul (4.8-10.8)
[2017-01-03 05:21] LABS: CALCIUM 7.4 mg/dl (8.4-10.2); CREATININE 0.53 mg/dl (0.61-1.24); POTASSIUM 4.7 mmol/L (3.5-5.1)
[2017-01-03] MEDS: ASACOL HD PO SCH ×3 (05:28→21:55)
[2017-01-03 05:39] LABS: PLATELET COUNT 80 10^3/UL (140-415)
[2017-01-03] MEDS: DIPHENOXYLATE/ATROPINE 5 ML CUP PO SCH ×2 (06:48→20:03)
--- NOTE | 2017-01-03 08:01 | PN ---
DATE: 01/02/2017 WORKING DIAGNOSES: 1. Hypotension. 2. Crohn's Disease with intractable diarrhea. 3. Anemia. 4. Chronic renal failure. 5. Malnutrition. 6. Dysphagia with G-tube feeding. 7. Generalized edema with hypoproteinemia. SUMMARY: The patient is an 81-year-old male in ICU since admission on 12/28/2016. Patient's blood pressure is still low. MEDICATIONS: He is on: 1. Vitamin K 10 mg once a day. 2. Zofran 4 mg IV q.4h. p.r.n. 3. Santyl applied to the skin. 4. Diflucan 1 q.24h. 5. Norepinephrine IV titration 22.5 mL an hour IV. 6. Rowasa 1 gram at bedtime enema. Intake last 24 hours was 1511, output 690. ____ with the patient's urine output is scanty now. Uri ne output was 690 mL, tube feeding 1100. PHYSICAL EXAMINATION: VITAL SIGNS: Today shows a temperature 98.5, pulse 105, respirations 28, blood pressure 89/57, puls e oximetry 98% room air. LABORATORIES: WBC 8, hemoglobin 8.2 from yesterday, platelet count is 56. Chemistry shows sodium 1 30. BUN 18, creatinine 0.42, glucose 175, was 118; calcium 7.2, low. Albumin 1.7 low and protein 3 .0, low. MICROBIOLOGY: Blood culture and urine culture, sputum culture were all within normal limits. No x- ray was done ____. GENERAL: Patient awake, confused, lethargic, weak but easily arousable, not in pain or shortness of breath. HEENT: Normocephalic, atraumatic. Pupils equal, react to light and accommodation. Sclerae anicter ic. Extraocular movements normal limits. Throat clear. No sign of acute infection seen. Facial s kin and scalp within normal limits. Pale skin. NECK: Supple, trachea central, no thyroid enlargement, no cervical lymphadenopathy. Carotid pulse normal. No jugular venous distention. CHEST: Normal contour, normal inspiration and expiration. LUNGS: Clear to auscultation and percussion. HEART: Regular sinus rhythm. No rub or murmur. PMI localized in midclavicular line, fourth interc ostal space. ABDOMEN: Umbilicus central. No organomegaly. No tenderness and no organomegaly. Mild tenderness in the generalized abdomen from colitis. G-tube feeding in progress. Intact skin noted. GENITOURINARY: Chanel catheter in with scant urine. RECTAL: The patient was still having diarrhea, ____. EXTREMITIES: Upper and lower extremities normally shaped at this moment. No clubbing or cyanosis, but edema in the extremities with weakness of the muscles and difficulty moving the arms and legs an d difficulty walking. NEUROLOGICAL: Cranial nerves II through XII grossly normal limits, dysphagia, anorexia. Cranial ne rves II through XII grossly normal limits. Peripheral nerves, sensory hypoesthesia in extremities, muscle weakness, difficulty standing or walking or moving in bed. She is lethargic with neuropathy . PLAN: I discussed his condition with Dr. Marx, Dr. Olsen in nephrology consult and Dr. William acosta in cardiology consult and Dr. Watts in GI consult. ____ was given to him today for his colitis. Will continue the same medicine monitoring him, ____his blood pressure low. The patient is weaker. CODE STATUS: FULL CODE. Will monitor him. We will follow up. PROGNOSIS: Guarded to poor. Dictated By: RAMBO POWELL/MEAGAN Conf#: [id number] DID#: [id number]
[2017-01-03] MEDS: CHOLESTYRAMINE 4 GM PACKET PO SCH ×2 (10:51→20:03)
[2017-01-03] MEDS: L ACIDOPHIL/B LACTIS/B LONGUM CAPSULE PO SCH ×2 (10:51→20:03)
[2017-01-03] MEDS: COLLAGENASE 30 GM TUBE TOP SCH (10:52)
--- NOTE | 2017-01-03 12:38 | CONS ---
Date/Time of Note Date/Time of Note DATE: 01/03/17 TIME: 12:35 Assessment/Plan Assessment/Plan Chief Complaint/Hosp Course IMPRESSION 1. Hypotension/shock, question cardiac etiology versus volume depletion and sepsis.-on levophed. NL EF>65 by echo this admit 2. Abnormal electrocardiogram, assess for acute coronary syndrome.-negative troponin x 3 3. Tachycardia consistent with sinus tachycardia at this time.-to low 100's 4. Lower extremity edema, assess for congestive heart failure. 5. Inflammatory bowel disease, ongoing treatment, exacerbation. 6. Hyponatremia. 7. Anemia. 8. Leukocytosis. 9. Urinary tract infection. Recc: -Tele -serial ecg's -Continue abx's/antifungals/mesalamine -Wean levo as tolerated -F/U cx data -Give albumin infusion -Check venous ANUEL to rule out DVT Problems: Consultation Date/Type/Reason Admit Date/Time Dec 28, 2016 at 13:26 Initial Consult Date 12/29/16 Type of Consultation: Cardiology Reason for Consultation Hyopotension/CHF Referring Provider: RAMBO CHAIDEZ MD Exam/Review of Systems Vital Signs Vitals Vital Signs Date Time Temp Pulse Resp B/P Pulse Ox O2 Delivery O2 Flow Rate FiO2 01/03/17 12:00 118 01/03/17 08:45 28 104/57 98 Room Air 01/03/17 08:00 98.7 12/31/16 17:35 21 12/30/16 17:47 2.0 Intake and Output 01/02/17 01/02/17 01/03/17 15:00 23:00 07:00 Intake Total 630.05 ml 831.4 ml 589.7 ml Output Total 130 ml 770 ml 140 ml Balance 500.05 ml 61.4 ml 449.7 ml Exam Review of Systems: CONSTITUTIONAL: No fevers, chills. PULMONARY: No sob CARDIOVASCULAR: No chest pain/palpitations GASTROINTESTINAL: No nausea/vomiting. GENITOURINARY: No hematuria/dysuria. MUSCULOSKELETAL: No myagias/arthalgias. PSYCHIATRIC: The patient denies depression. NEUROLOGIC: lethargic Constitutional: alert Psych: no complaints Head: normocephalic ENMT: mucosa pink and moist Neck: jvd (9-10 cm water), supple Respiratory: diminished breath sounds (at bases/B) Cardiovascular: regular rate and rhythm Gastrointestinal: non-tender, soft Musculoskeletal: muscle tone (normal) Extremities: pitting pedal edema (Bilateral) Neurological: lethargic Results Result Diagram: 01/03/17 0440 01/03/17 0345 Results 24 hrs Laboratory Tests Test 01/03/17 03:45 01/03/17 04:40 Sodium Level 134 L Potassium Level 4.7 Chloride Level 111 H Carbon Dioxide Level 21 Anion Gap 7 L Blood Urea Nitrogen 24 H Creatinine 0.53 L Glucose Level 156 Calcium Level 7.4 L White Blood Count 13.5 #H Red Blood Count 2.61 L Hemoglobin 8.3 L Hematocrit 25.8 L Mean Corpuscular Volume 98.9 Mean Corpuscular Hemoglobin 31.8 Mean Corpuscular Hemoglobin Concent 32.2 Red Cell Distribution Width 13.3 Platelet Count 80 #L Mean Platelet Volume 12.4 H Neutrophils % 85.5 H Lymphocytes % 9.5 L Monocytes % 4.0 Eosinophils % 0.1 Basophils % 0.1 Nucleated Red Blood Cells % 0.0 Neutrophils # 11.6 H Lymphocytes # 1.3 Monocytes # 0.5 Eosinophils # 0.0 Basophils # 0.0 Nucleated Red Blood Cells # 0.0 Medications Medications Current Medications Mesalamine (Rowasa) 4 gm HS PA Last administered on 01/02/17 21:43; Admin Dose 4 GM; Start 12/28/16 at 21:00 Patient Own Medication 1 ea Q8 PO ; Start 12/28/16 at 22:00 Miscellaneous Information (*Order Clarification Bulletin) MEDICATION REQUIRES CLARIFICATION: Q8H XX Last administered on 12/31/16 09:30; Admin Dose 1 EA; Start 12/28/16 at 17:30 Phytonadione (Vitamin K) 10 mg Q7D IM ; Start 01/04/17 at 18:30 IV Flush 10 ml 10 ml PRN PRN IV IV PROTOCOL; Start 12/28/16 at 19:00 Norepinephrine 16 mg/Dextrose 500 ml @ 1.87 mls/hr TITRATE IV Last administered on 01/03/17 05:27; Admin Dose 31.87 MLS/HR; Start 12/29/16 at 10:00 Fluconazole/ Sodium Chloride (Diflucan 100 Mg/ NS (Pmx)) 50 ml @ 50 mls/hr Q24H IVPB Last administered on 01/02/17 20:23; Admin Dose 50 MLS/HR; Start 12/29/16 at 20:00 Collagenase (Santyl) 1 applic DAILY TOP Last administered on 01/03/17 10:52; Admin Dose 1 APPLIC; Start 01/02/17 at 09:00 Ondansetron HCl (Zofran Inj) 4 mg Q6H PRN IV NAUSEA AND/OR VOMITING; Start 08/10 at 09:30 Cholestyramine Resin (Questran) 1 pkt BID PO Last administered on 01/03/17 10: 51; Admin Dose 1 PKT; Start 01/02/17 at 21:00 Lactobacillus Acidophilus (Florajen3 Capsule) 1 each BID PO Last administered on 01/03/17 10:51; Admin Dose 1 EACH; Start 01/02/17 at 21:00 DARRELL THAO Jan 03, 2017 12:38
[2017-01-03] MEDS ORDERED: ALBUMIN HUMAN 25% 100 ML IV ONE (13:00)
--- NOTE | 2017-01-03 14:51 | RADRPT ---
PROCEDURE: US bilateral lower extremity veins. CLINICAL INDICATION: Bilateral leg pain and swelling. TECHNIQUE: Multiple longitudinal and transverse images of the bilateral lower extremity veins were obtained with rodríguez scale and color Doppler imaging. The common femoral vein, femoral vein, and popl iteal vein were evaluated. 2D grayscale measurements with compression sonography, color Doppler, and pulsed Doppler with augmentation. COMPARISON: No prior studies are available for comparison. FINDINGS: The right common femoral, femoral and popliteal veins are normally compressible throughout. Color f low demonstrates normal filling of the vessels. Normal waveforms are visualized and there is normal response to augmentation. There is thrombus in the right posterior tibial vein and right peroneal vein which are calf veins. The left common femoral and popliteal veins are normal with normal flow and compressibility. There is thrombus in the left femoral vein with lack of flow and lack of compressibility. The left femora l vein is dilated and contains echogenic thrombus. IMPRESSION: 1. Right calf vein thrombus. Otherwise normal deep venous system of the right lower extremity. 2. Acute deep venous thrombosis of the left femoral vein. The left common femoral vein and left po pliteal veins are normal. Call report: A call report of the findings was made to Dr. Shin on 01/03/2017 at 1450 hours. RPTAT: QQ .Mohsen Ledesma MD, MD Date Time Electronically viewed and signed by .Mohsen Ledesma MD, on 01/03/2017 14:51 .R/
--- NOTE | 2017-01-03 15:27 | CONS ---
Date/Time of Note Date/Time of Note DATE: 01/03/17 TIME: 15:26 Assessment/Plan Assessment/Plan Chief Complaint/Hosp Course - ACUTE KIDNEY INJURY - CHRONIC KIDNEY DISEASE - SEPTIC SHOCK - RESPIRATORY FAILURE - HYPERKALEMIA - ANEMIA PLAN: HEMODYNAMIC SUPPORT AT THIS POINT IMPROVING RENAL FUNCTION BACK TO BASE LINE WITH IMPROVING POTASSIUM MONITOR H/H AVOIDING NEPHROTOXIC AGENTS FOLLOW UP WITH IRON PANEL + STOOL FOR OCCULT BLOOD Problems: Consultation Date/Type/Reason Admit Date/Time Dec 28, 2016 at 13:26 Initial Consult Date 12/29/16 Type of Consultation: NEPHROLOGY Reason for Consultation - ACUTE KIDNEY INJURY Referring Provider: RAMBO CHAIDEZ MD 24 HR Interval Summary Subjective hx not possible: pt non-verbal Exam/Review of Systems Vital Signs Vitals Vital Signs Date Time Temp Pulse Resp B/P Pulse Ox O2 Delivery O2 Flow Rate FiO2 01/03/17 12:00 118 01/03/17 08:45 28 104/57 98 Room Air 01/03/17 08:00 98.7 12/31/16 17:35 21 12/30/16 17:47 2.0 Intake and Output 01/02/17 01/02/17 01/03/17 14:59 22:59 06:59 Intake Total 618.80 ml 831.4 ml 677.2 ml Output Total 135 ml 750 ml 170 ml Balance 483.80 ml 81.4 ml 507.2 ml Exam Constitutional: non-verbal Head: normocephalic Neck: jvd, supple Respiratory: crackles/rales Cardiovascular: regular rate and rhythm, systolic murmur Gastrointestinal: soft Results Result Diagram: 01/03/17 0440 01/03/17 0345 Results 24 hrs Laboratory Tests Test 01/03/17 03:45 01/03/17 04:40 Sodium Level 134 L Potassium Level 4.7 Chloride Level 111 H Carbon Dioxide Level 21 Anion Gap 7 L Blood Urea Nitrogen 24 H Creatinine 0.53 L Glucose Level 156 Calcium Level 7.4 L White Blood Count 13.5 #H Red Blood Count 2.61 L Hemoglobin 8.3 L Hematocrit 25.8 L Mean Corpuscular Volume 98.9 Mean Corpuscular Hemoglobin 31.8 Mean Corpuscular Hemoglobin Concent 32.2 Red Cell Distribution Width 13.3 Platelet Count 80 #L Mean Platelet Volume 12.4 H Neutrophils % 85.5 H Lymphocytes % 9.5 L Monocytes % 4.0 Eosinophils % 0.1 Basophils % 0.1 Nucleated Red Blood Cells % 0.0 Neutrophils # 11.6 H Lymphocytes # 1.3 Monocytes # 0.5 Eosinophils # 0.0 Basophils # 0.0 Nucleated Red Blood Cells # 0.0 Medications Medications Current Medications Mesalamine (Rowasa) 4 gm HS [place] Last administered on 01/02/17 21:43; Admin Dose 4 GM; Start 12/28/16 at 21:00 Patient Own Medication 1 ea Q8 PO ; Start 12/28/16 at 22:00 Miscellaneous Information (*Order Clarification Bulletin) MEDICATION REQUIRES CLARIFICATION: Q8H XX Last administered on 12/31/16 09:30; Admin Dose 1 EA; Start 12/28/16 at 17:30 Phytonadione (Vitamin K) 10 mg Q7D IM ; Start 01/04/17 at 18:30 IV Flush 10 ml 10 ml PRN PRN IV IV PROTOCOL; Start 12/28/16 at 19:00 Norepinephrine 16 mg/Dextrose 500 ml @ 1.87 mls/hr TITRATE IV Last administered on 01/03/17 05:27; Admin Dose 31.87 MLS/HR; Start 12/29/16 at 10:00 Fluconazole/ Sodium Chloride (Diflucan 100 Mg/ NS (Pmx)) 50 ml @ 50 mls/hr Q24H IVPB Last administered on 01/02/17 20:23; Admin Dose 50 MLS/HR; Start 12/29/16 at 20:00 Collagenase (Santyl) 1 applic DAILY TOP Last administered on 01/03/17 10:52; Admin Dose 1 APPLIC; Start 01/02/17 at 09:00 Ondansetron HCl (Zofran Inj) 4 mg Q6H PRN IV NAUSEA AND/OR VOMITING; Start 08/10 at 09:30 Cholestyramine Resin (Questran) 1 pkt BID PO Last administered on 01/03/17 10: 51; Admin Dose 1 PKT; Start 01/02/17 at 21:00 Lactobacillus Acidophilus (Florajen3 Capsule) 1 each BID PO Last administered on 01/03/17 10:51; Admin Dose 1 EACH; Start 01/02/17 at 21:00 GONZALEZ NATION MD Jan 03, 2017 15:27
[2017-01-03 16:00] LABS: TOTAL IRON BINDING CAPACITY 122 ug/dl (241-421)
[2017-01-03] MEDS ORDERED: PHENYLephrine 160 MG in DEXTROSE 5% 484 ML IV SCH (16:00)
[2017-01-03 16:11] LABS: IRON < 10 ug/dl (35-150)
[2017-01-03] MEDS: SOD FERRIC GLUC COMPLX 125 MG in SOD CHLORIDE 0.9% 100 ML IVPB SCH (17:50)
[2017-01-03] MEDS: FLUCONAZOLE 100 MG/NS (PMX) 50 ML IVPB SCH (20:04)
[2017-01-03] MEDS: MESALAMINE 4 GM/60 ML ENEMA PR SCH (23:02)
[2017-01-04] VITALS (98 sets, daily range): BP systolic 37–167; BP diastolic 26–125; PULSE 97–118; RESP 24–56; Ht 170.2 cm; Wt 51.4 kg
[2017-01-04] MEDS: [UNRECOGNIZED DRUG - REMARK] XX SCH (01:30)
[2017-01-04 04:44] LABS: ADD SCAN DIFF NO
[2017-01-04 04:51] LABS: ABNORMAL IP MESSAGE 1; EOSINOPHILS % 0.1 % (0.0-7.0); HEMOGLOBIN 7.4 g/dl (14.0-18.0); LYMPHOCYTES # 1.3 10^3/ul (0.8-2.9); LYMPHOCYTES % 9.5 % (15.0-51.0); MEAN CORPUSCULAR HGB CONC 30.8 g/dl (32.0-37.0); MEAN CORPUSCULAR VOLUME 100.4 fl (82.0-101.0); MEAN PLATELET VOLUME 13.1 fl (7.4-10.4); MONOCYTE # 0.5 10^3/ul (0.3-0.9); MONOCYTES % 3.8 % (0.0-11.0); NEUTROPHIL # 11.4 10^3/ul (1.6-7.5); NEUTROPHILS % 85.7 % (39.0-77.0); PLATELET COUNT 76 10^3/UL (140-415); RED BLOOD COUNT 2.39 10^6/ul (4.70-6.10); RED CELL DISTRIBUTION WIDTH 13.2 % (11.5-14.5); WHITE BLOOD COUNT 13.3 10^3/ul (4.8-10.8)
[2017-01-04 05:04] LABS: TOTAL IRON BINDING CAPACITY 110 ug/dl (241-421)
[2017-01-04 05:05] LABS: IRON < 10 ug/dl (35-150)
[2017-01-04 05:09] LABS: POTASSIUM 5.3 mmol/L (3.5-5.1)
[2017-01-04 05:12] LABS: CREATININE 0.65 mg/dl (0.61-1.24)
[2017-01-04 05:13] LABS: CALCIUM 7.8 mg/dl (8.4-10.2)
[2017-01-04] MEDS: ASACOL HD PO SCH ×3 (06:00→21:11)
[2017-01-04] MEDS: DIPHENOXYLATE/ATROPINE 5 ML CUP PO SCH (06:43)
--- NOTE | 2017-01-04 08:51 | PN ---
DATE: 01/03/2017 WORKING DIAGNOSES: 1. Acute encephalopathy. 2. Intractable diarrhea. 3. Crohn's disease. 4. Anemia with hemoglobin 8.3 5. Dysphagia, on G-tube feeding. 6. Dehydration with BUN jumping up to 24 and hypocalcemia and malnutrition and thrombocytopenia. 7. Possible deep venous thrombosis, both lower extremities. 8. Hypotension, still on vasopressor. SUMMARY: The patient is an 81-year-old male in ICU secondary to his dysphagia, dehydration, and hyp otension. The patient's vital signs today show temperature 98.7, pulse 118, respirations 28, blood pressure 104/57, O2 saturation 98% room air. Intake was 2127, output 1055 mL from ____ 455 urine, 600 from the left perianal collection bag. MEDICATIONS: The patient currently on 1. Vitamin K 10 mg daily. 2. Questran 1 packet b.i.d. 3. Lomotil 10 mL p.o. 4. Lactobacillus ____ b.i.d. 5. Zofran 40 mg q.6h. p.r.n. nausea, vomiting. 6. Santyl, apply to the decubitus ulcer. 7. Diflucan ____ q.24 hours. 8. Norepinephrine with hydration. 9. Rowasa enema 1 at night. 10. ____ 10 mL p.r.n. LABORATORIES: For today shows a WBC 13.548 and hemoglobin 8.3 ____ platelet count went up to 80 fro m 56, and neutrophils 85. His ____ 11.6. PT/INR 1.2. The urine scanty. PHYSICAL EXAMINATION: HEAD: Normocephalic, atraumatic. Pupils equal, react to light and accommodation. Sclerae anicteri c. Extraocular movements normal limits. Throat clear. No sign of acute infection seen. Facial sk in and scalp, normal limits. NECK: Supple, trachea central, no thyroid enlargement, no cervical lymphadenopathy. Carotid pulse normal. No jugular venous distention. CHEST: Normal contour, normal inspiration and expiration. LUNGS: Clear to auscultation and percussion. HEART: Regular sinus rhythm. No rub or murmur. PMI localized in midclavicular line, fourth interc ostal space. ABDOMEN: Umbilicus central with generalized tenderness, G-tube feeding in progress, and no leaking. GENITOURINARY: Urine incontinent. Chanel catheter with scant urine. ____ anal area with stool liqu idy. No gross hematuria. SKIN: With decubitus ulcer stage IV on the sacrum. NEUROLOGICAL: Cranial nerves II through XII grossly within normal limits. The patient not fully co gnitive, but for now the patient has weakness and numbness of the extremities with difficulty moving his extremities and sensation ____ walking difficulty. PLAN: The patient will continue the same vasopressor to support his dropping blood pressure. Discu ss with Dr. ____, nephrology consult pending, iron panel, and discussed with Dr. Watts for his diar julito and Crohn's disease. Will discuss with Dr. Shin ____ lower extremity possible DVT with ques tionable ____ antithrombotic medication or because of thrombocytopenia, anemia with micro rectal ble eding and weakness. Will continue the same medicine. Discussed with the staff and the family. Will follow up. PROGNOSIS: Guarded. CODE STATUS: Full code. Time spent with the patient and staff and record, 35 minutes. Dictated By: RAMBO POWELL/MEAGAN Conf#: [id number] DID#: [id number]
[2017-01-04] MEDS: CHOLESTYRAMINE 4 GM PACKET PO SCH ×2 (08:57→21:40)
[2017-01-04] MEDS: L ACIDOPHIL/B LACTIS/B LONGUM CAPSULE PO SCH ×2 (08:57→21:40)
[2017-01-04] MEDS: COLLAGENASE 30 GM TUBE TOP SCH (12:00)
--- NOTE | 2017-01-04 12:15 | CONS ---
Date/Time of Note Date/Time of Note DATE: 01/04/17 TIME: 12:00 Assessment/Plan Assessment/Plan Chief Complaint/Hosp Course IMPRESSION 1. Hypotension/shock, question cardiac etiology versus volume depletion and sepsis.- NL EF>65 by echo this admit 2. Abnormal electrocardiogram, assess for acute coronary syndrome.-negative troponin x 3 3. Tachycardia consistent with sinus tachycardia at this time.-to low 100's 4. Lower extremity edema, assess for congestive heart failure. 5. Inflammatory bowel disease, ongoing treatment, exacerbation. 6. Hyponatremia. 7. Anemia. 8. Leukocytosis. 9. Urinary tract infection. 10.DVT- L femoral vein by [facility] 01/04 Recc: -Tele -serial ecg's -Continue abx's/antifungals/mesalamine -Continue levo/Shayne as tolerated -F/U cx data -Give additional albumin infusion -Assess patient stability for IVC filter placement versus systemic anti- coagulation but must weigh risk of worsening anemia while receiving transfusion and given thrombocytopenia Problems: Consultation Date/Type/Reason Admit Date/Time Dec 28, 2016 at 13:26 Initial Consult Date 12/29/16 Type of Consultation: Cardiology Reason for Consultation Hypotension Referring Provider: RAMBO CHAIDEZ MD Exam/Review of Systems Vital Signs Vitals Vital Signs Date Time Temp Pulse Resp B/P Pulse Ox O2 Delivery O2 Flow Rate FiO2 01/04/17 11:15 107 34 86/56 96 01/04/17 08:00 97.8 01/04/17 06:00 Room Air 01/04/17 04:21 21 Intake and Output 01/03/17 01/03/17 01/04/17 15:00 23:00 07:00 Intake Total 849.31 ml 1156.70 ml 737.47 ml Output Total 120 ml 1100 ml 80 ml Balance 729.31 ml 56.70 ml 657.47 ml Exam Review of Systems: CONSTITUTIONAL: No fevers, chills. PULMONARY: No sob CARDIOVASCULAR: No chest pain/palpitations GASTROINTESTINAL: No nausea/vomiting. GENITOURINARY: No hematuria/dysuria. MUSCULOSKELETAL: No myagias/arthalgias. PSYCHIATRIC: The patient denies depression. NEUROLOGIC: Lethargic Constitutional: alert Psych: no complaints Head: normocephalic ENMT: mucosa pink and moist Neck: jvd (8 cm water), supple Respiratory: diminished breath sounds (at bases/B) Cardiovascular: regular rate and rhythm Gastrointestinal: soft Musculoskeletal: muscle weakness (generalized) Extremities: edema (None) Neurological: other (No focal deficits) Results Result Diagram: 01/04/17 0400 01/04/17 0400 Results 24 hrs Laboratory Tests Test 01/04/17 04:00 White Blood Count 13.3 H Red Blood Count 2.39 L Hemoglobin 7.4 L Hematocrit 24.0 L Mean Corpuscular Volume 100.4 Mean Corpuscular Hemoglobin 31.0 Mean Corpuscular Hemoglobin Concent 30.8 L Red Cell Distribution Width 13.2 Platelet Count 76 L Mean Platelet Volume 13.1 H Neutrophils % 85.7 H Lymphocytes % 9.5 L Monocytes % 3.8 Eosinophils % 0.1 Basophils % 0.0 Nucleated Red Blood Cells % 0.0 Neutrophils # 11.4 H Lymphocytes # 1.3 Monocytes # 0.5 Eosinophils # 0.0 Basophils # 0.0 Nucleated Red Blood Cells # 0.0 Sodium Level 133 L Potassium Level 5.3 H Chloride Level 105 Carbon Dioxide Level 21 Anion Gap 12 Blood Urea Nitrogen 34 H Creatinine 0.65 Glucose Level 145 Calcium Level 7.8 L Iron Level < 10 L Total Iron Binding Capacity 110 L Percent Iron Saturation Medications Medications Current Medications Mesalamine (Rowasa) 4 gm HS [place] Last administered on 01/03/17 23:02; Admin Dose 4 GM; Start 12/28/16 at 21:00 Patient Own Medication 1 ea Q8 PO ; Start 12/28/16 at 22:00 Miscellaneous Information (*Order Clarification Bulletin) MEDICATION REQUIRES CLARIFICATION: Q8H XX Last administered on 12/31/16 09:30; Admin Dose 1 EA; Start 12/28/16 at 17:30 Phytonadione (Vitamin K) 10 mg Q7D IM ; Start 01/04/17 at 18:30 IV Flush 10 ml 10 ml PRN PRN IV IV PROTOCOL; Start 12/28/16 at 19:00 Norepinephrine 16 mg/Dextrose 500 ml @ 1.87 mls/hr TITRATE IV Last administered on 01/04/17 04:06; Admin Dose 39.37 MLS/HR; Start 12/29/16 at 10:00 Fluconazole/ Sodium Chloride (Diflucan 100 Mg/ NS (Pmx)) 50 ml @ 50 mls/hr Q24H IVPB Last administered on 01/03/17 20:04; Admin Dose 50 MLS/HR; Start 12/29/16 at 20:00 Collagenase (Santyl) 1 applic DAILY TOP Last administered on 01/03/17 10:52; Admin Dose 1 APPLIC; Start 01/02/17 at 09:00 Ondansetron HCl (Zofran Inj) 4 mg Q6H PRN IV NAUSEA AND/OR VOMITING; Start 08/10 at 09:30 Cholestyramine Resin (Questran) 1 pkt BID PO Last administered on 01/04/17 08: 57; Admin Dose 1 PKT; Start 01/02/17 at 21:00 Lactobacillus Acidophilus 1 each 1 each BID PO Last administered on 01/04/17 08:57; Admin Dose 1 EACH; Start 01/02/17 at 21:00 Ferric Sodium Gluconate Complex 125 mg/Sodium Chloride 110 ml @ 100 mls/hr Q24H IVPB Last administered on 01/03/17 17:50; Admin Dose 100 MLS/HR; Start at 17:00; Stop 01/05/17 at 18:05 Phenylephrine HCl/ Dextrose (Shayne-Syneph/D5W) 500 ml @ 18.75 mls/ hr TITRATE IV Last administered on 01/04/17 08:59; Admin Dose 0.7 MLS/HR; Start 01/03/17 at 16:00 DARRELL THAO Jan 04, 2017 12:10
[2017-01-04] MEDS ORDERED: PANTOPRAZOLE 40 MG INJ IV SCH (15:00)
[2017-01-04 15:11] LABS: AADO2 Arterial 59.3 mmHg (7.0-24.0); Allen Test ACCEPTAB; Arterial Base Excess -6.8 mmol/L (-3.0-3); Arterial COHb 0.3 % (0.0-3.0); Arterial Fraction of Oxyhgb 91.1 % (93.0-99.0); Arterial MetHb 0.3 % (0.0-1.5); Arterial Total Hemglobin 11.2 g/dl (12.0-18.0); MODE ROOM AIR
--- NOTE | 2017-01-04 15:45 | RADRPT ---
PROCEDURE: XR Chest. CLINICAL INDICATION: Shortness of breath. TECHNIQUE: Single frontal view. COMPARISON: 12/28/2016. FINDINGS: There is a left arm PICC line with the tip in the lower superior vena cava. There are small bilater al pleural effusions. Air space disease is present bilaterally in the mid and lower lung zones. Th ere is a calcified granuloma at the right lung base laterally. The heart size is normal. There is calcification in the aorta consistent with atherosclerosis. There is no pneumothorax. IMPRESSION: 1. Worse appearance of the lungs and small bilateral pleural effusions. 2. No other new abnormality when compared with 12/28/2016. RPTAT: QQ .Mohsen Ledesma MD, MD Date Time Electronically viewed and signed by .Mohsen Ledesma MD, MD on 01/04/2017 15:45 .R/
[2017-01-04] MEDS ORDERED: DEXTROSE 5%-0.45% NACL 1,000 ML IV SCH (16:00)
--- NOTE | 2017-01-04 16:09 | PN ---
DATE: 01/04/2017 WORKING DIAGNOSES: 1. Intractable diarrhea secondary to ulcerative colitis. 2. Anemia due to gastrointestinal bleeding. 3. Acute renal failure, worsening. 4. Orthostatic hypotension with low blood pressure on vasopressor. 5. Vascular encephalopathy, severe weakness, lethargy 6. Dysphagia, on G-tube feeding. 7. Anemia, had blood transfusion this morning. 8. Tachypnea with possible pleural effusion. 9. Deep venous thrombosis lower extremities, pending inferior vena cava filter by Dr. Lubin or radiologist. CONSULTATIONS: Dr. Olsen nephrology consult, Dr. Shin, cardiology consult, Dr. Watts in GI co nsult. SUMMARY: The patient is an 81-year-old male in ICU since admission for his dysphagia, dehydration a nd malnutrition. The patient had a G-tube and was stabilized, but his urine is dark and scanty. Ev en with G-tube feeding, I noticed still dehydrated. The patient is followed by Dr. Olsen in nephr ology consult. The patient is still having intractable diarrhea even Lomotil cut down at the time o f the diarrhea. He has mild peptic ulcer disease with GI bleeding and G-tube and is due to thromboc ytopenia and malnutrition. The patient's family are aware about his condition, will follow up. VITAL SIGNS: Now temperature is 97.8, pulse 99, respirations 32 and going to 22, blood pressure 125 /58, pulse oximetry is 100%. Intake was 2778 mL and output is 1315. Urine output was 315 and 1000 mL from the rectum leaking. MEDICATIONS: Currently, the patient on: 1. Vitamin K 10 mg once a day. 2. Lomotil q.6h. via G-tube. 3. Protonix IV 40 mg every 24 hours. 4. Ferric sodium gluconate complex q.24h. IV piggyback for iron deficiency. 5. IV. 6. Questran 1 packet b.i.d. 7. Lactobacillus 1 tablet b.i.d. 8. Zofran 4 mg IV q.4 hours p.r.n. nausea, vomiting. 9. Santyl for wound decubitus. 10. Diflucan 100 mg IV q.24h. for esophageal prophylaxis. 11. Rowasa 4 gram enema at bedtime. 12. IV fluid p.r.n. with G-tube washing. LABORATORY DATA: Today, sodium was 133, mildly low, and potassium jumped to 5.3, chloride 105, BUN 34 was 24 yesterday, calcium 7.8, elevated. Iron less than 10, total iron binding capacity is 110, low. CBC showed WBC 13.3, hemoglobin 7.4, platelets 76 dropping from 80, neutrophils 85.7, high. Doppler study of lower extremities shows right common vein thrombosis and acute deep vein thrombosis of the left femoral vein. Left common femoral vein and left popliteal vein are normal. MICROBIOLOGY: C and S on admission negative. PHYSICAL EXAMINATION: GENERAL: The patient is awake, restless, confused, looks stated age with tachypnea. HEENT: Normocephalic, atraumatic. Pupils equal, react to light, unable to do accommodation patient uncooperative. Facial skin and scalp within normal limits. N.p.o. with oral hygiene in progress. NECK: Supple, trachea central, no thyroid enlargement, no cervical lymphadenopathy. Carotid pulse normal. No jugular venous distention. CHEST: Normal contour. Normal inspiration and expiration. LUNGS: Clear to auscultation and percussion. HEART: Regular sinus rhythm with tachycardia. PMI localized in midclavicular line, fourth intercos ceci space. ABDOMEN: Umbilicus central with G-tube in position, mild redness around G-tube site with a few drop s of blood, possible from bleeding of scabs. Generalized mild abdominal tenderness. GENITOURINARY: External genitalia within normal limits. Chanel catheter in. RECTAL: Rectal bag for stool collection. EXTREMITIES: Upper and lower extremities normally shaped at this moment. Atrophy of the muscles wi th stiffness of the joints, with muscle weakness and difficulty moving in bed. NEUROLOGICAL: The patient awake, confused, disoriented, aphasic, dysphagic. Cranial nerves are winston ssly within normal limits. Peripheral nerve motor weakness in the extremities with hypoesthesia in extremities with difficulty moving his legs around. PLAN: The patient's condition is still critical in the ICU. Discussed condition with the family. Protonix will be started now. Blood transfusion given. Discussed with Dr. Olsen in nephrology co nsult, Dr. Shin and Dr. Lubin in vascular surgery consult for possible inferior vena cava kailey er. Discussed with Dr. Watts. We will continue the same management. A chest x-ray was ordered an d ABG ordered. We will follow up. PROGNOSIS: Guarded to poor. CODE STATUS: FULL CODE. Dictated By: RAMBO POWELL/MEAGAN Conf#: [id number] DID#: [id number]
[2017-01-04] MEDS ORDERED: VANCOMYCIN IV PER PHARMACY XX SCH (16:30)
--- NOTE | 2017-01-04 16:53 | CONS ---
DATE OF ADMISSION: 12/28/2016 DATE OF CONSULTATION: 01/04/2017 TYPE OF CONSULTATION: Infectious Disease. REASON FOR CONSULTATION: Antibiotic management. HISTORY OF PRESENT ILLNESS: The patient is an 81-year-old male who was admitted from a skilled nurs ing facility with weakness, lethargy, and failure to thrive. His past problems include: 1. Severe hypertension. 2. Chronic ulcerative colitis with acute status with diarrhea and rectal bleeding. 3. Major depression. 4. Anemia. 5. Dysphagia. 6. Benign prostatic hypertrophy. Acutely, the patient presents with what appears to be septic shock and recurrent hypotension. The p atient has had a long hospital course. He has been seen by numerous consultants including Dr. Andrew acosta. Dr. Watts started him on Solu-Medrol in the emergency room, TPN to improve his albumin. He had a gastrostomy tube placement, EGD with biopsy. He was seen by Dr. Olsen and Dr. Shin. Dr. Sa landeros felt on 01/01/2017 that he had improving renal function. Currently, he has acute encephalopat hy, intractable diarrhea, Crohn's disease, dysphagia, status post G-tube placement, possible deep ve in thrombophlebitis. PAST MEDICAL HISTORY: Operations as outlined. FAMILY HISTORY: Noncontributory. SOCIAL HISTORY: Does not smoke, drink or abuse drugs. ALLERGIES: NONE TO PENICILLIN, SULFA OR FOODS. MEDICATIONS: Per chart. REVIEW OF SYSTEMS: As per HPI. PHYSICAL EXAMINATION: GENERAL: The patient is an elderly appearing, chronically ill male who is awake, noncommunicative, in no acute distress. VITAL SIGNS: Stable. He is afebrile. SKIN: Without generalized rash. HEENT: Within normal limits. NECK: Supple. LYMPH NODES: None palpable. CHEST: Decreased breath sounds at the bases. HEART: Without murmur or gallop. ABDOMEN: Soft, nontender, without organosplenomegaly or masses. He has a G-tube without leaks. EXTREMITIES: Without cyanosis, clubbing, or edema. RECTAL/GENITAL: Exam is deferred. Chanel catheter in place. NEUROLOGIC: The patient is confused. He has weakness. He has numbness in the extremities with dif ficulty moving his extremities. He has difficulty walking. SKIN: He has decubitus ulcers, stage IV on the sacrum. IMPRESSION AND PLAN: He is currently on vasopressors at this point his blood pressure. Currently bruna donovan is afebrile. He is on norepinephrine. His Clostridium difficile is negative. Urine cultures are negative. Blood cultures are negative. We probably should get an IVC filter placement. He is cur rently only on fluconazole. We will get some blood cultures, urine cultures, and start him on vanco mycin and cefepime. His recent chest x-ray shows worse appearance of the lungs with small bilateral pleural effusions. He has a left arm PICC line. Airspace disease is present bilaterally in the mi d and lower lung zones. I will dictate my findings to Dr. Aguilar. He may need a pulmonary consult ation. Dictated By: ROMMEL HUDSON MD, JD/MEAGAN Conf#: [id number] DID#: [id number]
[2017-01-04] MEDS ORDERED: VANCOMYCIN 1 GM in NS 250 ML IVPB SCH (17:00)
--- NOTE | 2017-01-04 17:08 | CONS ---
Date/Time of Note Date/Time of Note DATE: 01/04/17 TIME: 17:06 Assessment/Plan Assessment/Plan Chief Complaint/Hosp Course - ACUTE KIDNEY INJURY - CHRONIC KIDNEY DISEASE - SEPTIC SHOCK - RESPIRATORY FAILURE - HYPERKALEMIA - ANEMIA PLAN: HEMODYNAMIC SUPPORT AT THIS POINT IMPROVING RENAL FUNCTION BACK TO BASE LINE WITH IMPROVING POTASSIUM MONITOR H/H AVOIDING NEPHROTOXIC AGENTS FOLLOW UP WITH IRON PANEL + STOOL FOR OCCULT BLOOD Problems: Consultation Date/Type/Reason Admit Date/Time Dec 28, 2016 at 13:26 Initial Consult Date 12/29/16 Type of Consultation: NEPHROLOGY Reason for Consultation - SHANTAL - SEPSIS Referring Provider: RAMBO CHAIDEZ MD 24 HR Interval Summary Subjective hx not possible: pt non-verbal Constitutional: no complaints Exam/Review of Systems Vital Signs Vitals Vital Signs Date Time Temp Pulse Resp B/P Pulse Ox O2 Delivery O2 Flow Rate FiO2 01/04/17 16:00 98 01/04/17 14:00 32 123/58 100 01/04/17 12:00 97.7 01/04/17 12:00 Nasal Cannula 3.0 01/04/17 04:21 21 Intake and Output 01/03/17 01/03/17 01/04/17 15:00 23:00 07:00 Intake Total 849.31 ml 1156.70 ml 737.47 ml Output Total 120 ml 1100 ml 80 ml Balance 729.31 ml 56.70 ml 657.47 ml Exam Constitutional: alert Psych: no complaints Respiratory: crackles/rales Cardiovascular: regular rate and rhythm, systolic murmur Gastrointestinal: soft Results Result Diagram: 01/04/17 0400 01/04/17 0400 Results 24 hrs Laboratory Tests Test 01/04/17 04:00 01/04/17 13:46 White Blood Count 13.3 H Red Blood Count 2.39 L Hemoglobin 7.4 L Hematocrit 24.0 L Mean Corpuscular Volume 100.4 Mean Corpuscular Hemoglobin 31.0 Mean Corpuscular Hemoglobin Concent 30.8 L Red Cell Distribution Width 13.2 Platelet Count 76 L Mean Platelet Volume 13.1 H Neutrophils % 85.7 H Lymphocytes % 9.5 L Monocytes % 3.8 Eosinophils % 0.1 Basophils % 0.0 Nucleated Red Blood Cells % 0.0 Neutrophils # 11.4 H Lymphocytes # 1.3 Monocytes # 0.5 Eosinophils # 0.0 Basophils # 0.0 Nucleated Red Blood Cells # 0.0 Sodium Level 133 L Potassium Level 5.3 H Chloride Level 105 Carbon Dioxide Level 21 Anion Gap 12 Blood Urea Nitrogen 34 H Creatinine 0.65 Glucose Level 145 Calcium Level 7.8 L Iron Level < 10 L Total Iron Binding Capacity 110 L Percent Iron Saturation Blood Gas Specimen Source Blood arterial Arterial Blood Date Drawn 01/04/2017 3:01:35 PM Arterial Blood pH (Temp corrected) 7.431 Arterial Blood pCO2 (Temp correct) 24.6 L Arterial Blood pO2 (Temp corrected) 61.0 L Arterial Blood HCO3 16.0 L Arterial Blood Base Excess -6.8 L Arterial Blood Oxygen Saturation 91.6 L Bert Test ACCEPTAB Arterial Blood Gas Puncture Site Right Radial Arterial Blood Carboxyhemoglobin 0.3 Arterial Blood Methemoglobin 0.3 Blood Gas A-a O2 Differential 59.3 H Oxyhemoglobin Percent 91.1 L Total Hemoglobin 11.2 L Blood Gas Temperature 37.0 Blood Gas Modality ROOM AIR FiO2 21.0 Blood Gas Notified Whom JLD Blood Gas Notified Time 01/04/2017 3:11:19 PM Medications Medications Current Medications Mesalamine (Rowasa) 4 gm HS NV Last administered on 01/03/17 23:02; Admin Dose 4 GM; Start 12/28/16 at 21:00 Patient Own Medication 1 ea Q8 PO ; Start 12/28/16 at 22:00 Phytonadione (Vitamin K) 10 mg Q7D IM ; Start 01/04/17 at 18:30 IV Flush 10 ml 10 ml PRN PRN IV IV PROTOCOL; Start 12/28/16 at 19:00 Norepinephrine 16 mg/Dextrose 500 ml @ 1.87 mls/hr TITRATE IV Last administered on 01/04/17 04:06; Admin Dose 39.37 MLS/HR; Start 12/29/16 at 10:00 Fluconazole/ Sodium Chloride (Diflucan 100 Mg/ NS (Pmx)) 50 ml @ 50 mls/hr Q24H IVPB Last administered on 01/03/17 20:04; Admin Dose 50 MLS/HR; Start 12/29/16 at 20:00 Collagenase (Santyl) 1 applic DAILY TOP Last administered on 01/03/17 10:52; Admin Dose 1 APPLIC; Start 01/02/17 at 09:00 Ondansetron HCl (Zofran Inj) 4 mg Q6H PRN IV NAUSEA AND/OR VOMITING; Start 08/10 at 09:30 Cholestyramine Resin (Questran) 1 pkt BID PO Last administered on 01/04/17 08: 57; Admin Dose 1 PKT; Start 01/02/17 at 21:00 Lactobacillus Acidophilus 1 each 1 each BID PO Last administered on 01/04/17 08:57; Admin Dose 1 EACH; Start 01/02/17 at 21:00 Ferric Sodium Gluconate Complex 125 mg/Sodium Chloride 110 ml @ 100 mls/hr Q24H IVPB Last administered on 01/03/17 17:50; Admin Dose 100 MLS/HR; Start at 17:00; Stop 01/05/17 at 18:05 Phenylephrine HCl/ Dextrose (Shayne-Syneph/D5W) 500 ml @ 18.75 mls/ hr TITRATE IV Last administered on 01/04/17 08:59; Admin Dose 0.7 MLS/HR; Start 01/03/17 at 16:00 Pantoprazole (Protonix Iv) 40 mg DAILY@06 IV ; Start 01/04/17 at 15:00 Diphenoxylate HCl/ Atropine 5 ml 5 ml Q6 GTB ; Start 01/04/17 at 18:00 Cefepime HCl 50 ml @ 100 mls/hr Q24H IVPB ; Start 01/04/17 at 17:30 Vancomycin HCl 250 ml @ 125 mls/hr ONCE IVPB ; Start 01/04/17 at 17:00; Stop at 23:00 Vancomycin HCl/ Sodium Chloride (Vancocin/NS) 150 ml @ 75 mls/hr Q12H IVPB ; Start 01/05/17 at 05:00 GONZALEZ NATION MD Jan 04, 2017 17:08
[2017-01-04] MEDS ORDERED: CEFEPIME 1GM/50 ML (PMX) 50 ML IVPB SCH (17:30)
[2017-01-04] MEDS: SOD FERRIC GLUC COMPLX 125 MG in SOD CHLORIDE 0.9% 100 ML IVPB SCH (17:35)
[2017-01-04] MEDS: DIPHENOXYLATE/ATROPINE 5 ML CUP GTB SCH (17:44)
[2017-01-04] MEDS ORDERED: PHYTONADIONE 10 MG/ML INJ IM SCH (18:30)
[2017-01-04] MEDS: FLUCONAZOLE 100 MG/NS (PMX) 50 ML IVPB SCH (20:33)
[2017-01-04] MEDS ORDERED: DOPamine-D5W 1.6 MG/ML 250 ML IV PRN (21:45)
[2017-01-04] MEDS: MESALAMINE 4 GM/60 ML ENEMA PR SCH (22:25)
[2017-01-04 23:57] LABS: AADO2 Arterial 544.2 mmHg (7.0-24.0); Allen Test ACCEPTAB; Arterial Base Excess -19.2 mmol/L (-3.0-3); Arterial COHb 0.3 % (0.0-3.0); Arterial Fraction of Oxyhgb 94.9 % (93.0-99.0); Arterial HCO3 11.5 mmol/L (22.0-26.0); Arterial MetHb 0.6 % (0.0-1.5); Arterial Total Hemglobin 12.4 g/dl (12.0-18.0); Blood Gas IEPAP 15/5; Blood Gas PS 10; MODE MASK - BIPAP
[2017-01-05] VITALS (11 sets, daily range): BP systolic 31–54; BP diastolic 21–26; PULSE 0–129; RESP 0–37
[2017-01-05] MEDS: DIPHENOXYLATE/ATROPINE 5 ML CUP GTB SCH
[2017-01-05] MEDS ORDERED: PROPOFOL 100 ML IV SCH (00:30)
[2017-01-05 00:49] LABS: HEMATOCRIT 32.9 % (42.0-52.0); HEMOGLOBIN 10.1 g/dl (14.0-18.0)
[2017-01-05] MEDS ORDERED: SOD CHLORIDE 0.9% 1,000 ML IV SCH (01:00)
[2017-01-05] MEDS ORDERED: VASOPRESSIN 60 UNIT in DEXTROSE 5% 57 ML IV SCH (01:00)
[2017-01-05] MEDS ORDERED: LORAZEPAM 2 MG INJ IV PRN (01:45)
[2017-01-05] MEDS ORDERED: morphine (DRIP) 100 MG/100 ML 100 ML IV SCH (01:45)
[2017-01-05] MEDS ORDERED: DIMETHICONE STICK TOP PRN (02:00)
[2017-01-05] MEDS ORDERED: ARTIFICIAL TEARS 15 ML OPH BOTH EYES PRN (02:00)
[2017-01-05] MEDS ORDERED: ROCURONIUM 50 MG INJ ONE (05:00)
[2017-01-05] MEDS ORDERED: VANCOMYCIN 750 MG in SOD CHLORIDE 0.9% 150 ML IVPB SCH (05:00)
[2017-01-05] MEDS ORDERED: ETOMIDATE 20 MG INJ ONE (05:00)
--- NOTE | 2017-01-05 05:32 | CONS ---
DATE OF ADMISSION: 12/28/2016 DATE OF CONSULTATION: REASON FOR CONSULTATION: DVT. HISTORY OF PRESENT ILLNESS: This is an 81-year-old male admitted from a [facility] with weakness, lethargy, dehydration. Part of his workup included a lower extremity venous study which was done y esterday which was positive for right calf vein thrombus and acute DVT in the left femoral vein. PAST MEDICAL HISTORY: Significant for hypertension, hyperlipidemia, GERD, Crohn disease, history of GI bleeding, difficulty walking, benign prostatic hypertrophy. MEDICATIONS: Include: 1. Remeron. 2. Vitamin D. 3. Protonix. 4. Flagyl. 5. Flomax. PHYSICAL EXAMINATION: VITAL SIGNS: Blood pressure is 85/54, pulse is 106, respirations 38, saturation is 95% on 3 L of ox ygen. CARDIOVASCULAR: Normal S1, S2. LUNGS: Clear. ABDOMEN: Soft. EXTREMITIES: Warm. REVIEW OF SYSTEMS: Unable to be obtained. LABORATORY VALUES: Hemoglobin 7.4, white count 13.3, platelet count 76. INR 1.22 and a potassium o f 5.3 and a creatinine of 0.65. IMPRESSION: 1. Deep venous thrombosis, left femoral vein. 2. Diarrhea. The patient does have a history of GI bleeding, high risk of extending his DVT secondary to nonambul atory nature and sedentary position in addition to history of anemia. At this time will proceed wit h an IVC filter if the patient clinically stabilizes. Will discuss with Dr. Aguilar and Dr. Shin . Dictated By: ATA CROWDER/MEAGAN Conf#: [id number] DID#: [id number]
--- NOTE | 2017-01-05 05:47 | EN ---
Date/Time of Note Date/Time of Note DATE: 01/05/17 TIME: 05:45 ER Progress Note I was asked by his physician to intubate the patient in ICU. Upon arrival to the ICU, he was found severe respiratory distress and required intubation immediately Endotracheal Intubation by me: Pre assessment performed. See preceding note for details. Pre-oxygenation performed with 100% oxygen RSI: Performed w/o complication or hypoxic events. Medications as ordered. Blade: [place] Scope ET Tube: 7.5 cm Depth: 23 cm at the lip Intubation confirmed by colorimetric CO2, equal breath sounds, quiet over the stomach. I have requested for nasogastric tube and a chest x-ray and a Chanel catheter I transferred the patient's care back to his physician MARIKA CUEVA MD Jan 05, 2017 05:47
[2017-01-05] MEDS ORDERED: VANCOMYCIN 1 GM in NS 250 ML IVPB SCH (17:00)
== END 2017-01-05 05:43 | disposition expired | DRG 871 ==
LOC: E/R 13:07 → ICU 13:26
PROVIDERS: ADMIT Family Medicine; ATTEND Family Medicine
PROC: 3E0436Z Introduction of Nutritional Substance into Central Vein, Percutaneous Approach (ICD-10-PCS; 2016-12-28)
PROC: 02HV33Z Insertion of Infusion Device into Superior Vena Cava, Percutaneous Approach (ICD-10-PCS; 2016-12-28)
PROC: 3E0G76Z Introduction of Nutritional Substance into Upper GI, Via Natural or Artificial Opening (ICD-10-PCS; 2016-12-29)
PROC: 0DH63UZ Insertion of Feeding Device into Stomach, Percutaneous Approach (ICD-10-PCS; principal; 2016-12-29 18:33)
PROC: 5A1935Z Respiratory Ventilation, Less than 24 Consecutive Hours (ICD-10-PCS; 2017-01-05)
PROC: 0BH17EZ Insertion of Endotracheal Airway into Trachea, Via Natural or Artificial Opening (ICD-10-PCS; 2017-01-05)
DX: A41.9 Sepsis, unspecified organism (principal); R65.21 Severe sepsis with septic shock; J96.90 Respiratory failure, unspecified, unspecified whether with hypoxia or hypercapnia; E43 Unspecified severe protein-calorie malnutrition; N17.9 Acute kidney failure, unspecified; G92 Toxic encephalopathy; I13.0 Hypertensive heart and chronic kidney disease with heart failure and stage 1 through stage 4 chronic kidney disease, or unspecified chronic kidney disease; K51.911 Ulcerative colitis, unspecified with rectal bleeding; D69.6 Thrombocytopenia, unspecified; L89.153 Pressure ulcer of sacral region, stage 3; I50.9 Heart failure, unspecified; E87.2 Acidosis; E87.1 Hypo-osmolality and hyponatremia; D62 Acute posthemorrhagic anemia; Z68.1 Body mass index [BMI] 19.9 or less, adult; I82.412 Acute embolism and thrombosis of left femoral vein; I82.4Z1 Acute embolism and thrombosis of unspecified deep veins of right distal lower extremity; N39.0 Urinary tract infection, site not specified; B37.81 Candidal esophagitis; N18.9 Chronic kidney disease, unspecified; E86.0 Dehydration; I95.1 Orthostatic hypotension; E87.5 Hyperkalemia; E77.8 Other disorders of glycoprotein metabolism; F32.9 Major depressive disorder, single episode, unspecified; N40.0 Benign prostatic hyperplasia without lower urinary tract symptoms; R13.10 Dysphagia, unspecified; R62.7 Adult failure to thrive; I46.9 Cardiac arrest, cause unspecified; Z87.891 Personal history of nicotine dependence
CPT/HCPCS: 31500; 36415; 36430; 36569; 36600; 71010; 74176; 76937; 80048; 80053; 81001; 81003; 82150; 82270; 82550; 82553; 82803; 82962; 83540; 83605; 83690; 83735; 84100; 84443; 84484; 85014; 85018; 85025; 85610; 85730; 86580; 86850; 86900; 86901; 86920; 87040; 87045; 87070; 87075; 87081; 87086; 88305; 88313; 93005; 93306; 93970; 94002; 94660; 94770; 96361; 96374; 96375; C9113; J0171; J0690; J0692; J1200; J1265; J1450; J1745; J2250; J2370; J2916; J2920; J2930; J3010; J3370; J7030; J7040; J7042; J7060; P9016; P9047